=== PATIENT | female | born 1990 | race Caucasian/White ===

== ENCOUNTER → 2017-05-25 | Outpatient (CLI) | payer OTHER ==
[~2017-05-25] MED LIST: ACET-1256 PO; ALBUAER INH; BCPILLS PO; FLNIN/ NAE
[2017-05-30 01:20] LABS: CHLAMYDIA TRACH RNA*** NOT DETECTED (NOT DETECTED); GC (NEIS GONORRHOEAE)RNA** NOT DETECTED (NOT DETECTED); TRICHOMONAS VAGINALIS RNA** DETECTED (NOT DETECTED)
== END | disposition home or self-care (01) ==
LOC: C.LABSPEC 13:35
PROVIDERS: ATTEND Obstetrics & Gynecology
DX: Z11.3 Encounter for screening for infections with a predominantly sexual mode of transmission (principal)

== ENCOUNTER 2017-10-25 21:57 | Emergency (ER) | payer OTHER ==
[~2017-10-25] VITALS: Ht 154.9 cm; Wt 126.0 kg
[2017-10-25 22:08] VITALS: TEMP 37.2; Ht 154.9 cm; Wt 126.0 kg
[2017-10-25] MEDS ORDERED: IBUPROFEN 800 MG TAB PO STA (22:14)
[2017-10-25] MEDS ORDERED: NORETAB PO (22:37)
[2017-10-25] MEDS ORDERED: VNTHFA/IN INH (22:37)
--- NOTE | 2017-10-25 22:40 | DIAGNOSTIC IMAGING REPORT ---
L ANKLE MIN 3 VIEWS ROUTINE HISTORY: 27 years-old Female left medial pain/bruising acute left ankle pain status post trauma COMPARISON: None available TECHNIQUE: 3 views of the left ankle FINDINGS: There is an acute comminuted fracture of the distal fibular diaphysis which extends 3.6 cm proximal to the tibial plafond. There is 4 mm lateral and 2 mm posterior displacement with 6 degrees apex volar angulation. Moderate associated soft tissue swelling. There is questioned widening of the distal tibiofibular syndesmosis, 4 mm. The tibia and talus appear intact. IMPRESSION: Acute comminuted fracture of the distal fibular diaphysis with mild displacement and angulation as above. Mild widening of the distal tibiofibular syndesmosis is suspicious for associated syndesmotic injury. The above report was generated using voice recognition software. It may contain grammatical, syntax or spelling errors. Electronically signed by: Davy Callejas M.D. 10/25/2017 10:38 PM Dictated Date/Time: 10/25/2017 10:35 PM
[2017-10-25] MEDS ORDERED: FENTANYL CITRATE INJ 50 MCG/1 ML 2 ML VIAL IM STA (22:43)
[2017-10-25] MEDS ORDERED: ONDANSETRON INJ 2 MG/ML 2 ML VIAL IM STA (22:43)
[2017-10-25] MEDS ORDERED: OXYCODONE IR HOME PACK PO STA (22:43)
[2017-10-25] MEDS ORDERED: OXYC1TAB3 PO (23:15)
--- NOTE | 2017-10-25 23:19 | EMERGENCY ROOM VISIT NOTE ---
ED Visit Note First contact with patient: 22:02 CHIEF COMPLAINT: Left Ankle pain HISTORY OF PRESENT ILLNESS: This 27-year-old female patient presents to the emergency department via ambulance, approximately 30 minutes after sustaining an injury to the left ankle while at [facility]. The patient states she was skating through obstacles, when she caught her skate on one of the obstacles. The patient's foot got twisted and bent underneath her body, she fell on top of her foot. The patient complains of pain along the entire ankle, and is unable to identify specifically where the pain is. The patient denies pain of the foot. The patient rates the pain as throbbing and 10/10. The patient is not able to bear weight on the foot. Constant pain, worse with movement, and the dependent position. No knee pain, the patient is able to move their toes. No numbness or weakness of the foot, no laceration. The patient has not had a previous fracture to this ankle. The patient has taken nothing for the pain. The patient denies any other injury. REVIEW OF SYSTEMS: A 6 system review of systems was completed with positives and pertinent negatives listed in the HPI. ALLERGIES: Sulfa MEDICATIONS: Oral contraceptive pills PMH: Platelet aggregation disorder SOCIAL HISTORY: The patient lives locally with family. She denies drug, alcohol , tobacco use. PHYSICAL EXAM: Vital Signs: Reviewed Nurse's notes, vital signs stable. GENERAL : This is a 27-year-old obese white female, no acute distress, but appears in pain, well-developed, well-nourished. The patient is flighty, and difficult to elicit a history from. The patient is very sporadic and her story telling, and is having difficulty focusing and paying attention as I talk with her. MENTAL STATUS: Alert, oriented to person place and time, and cooperative. MUSCULOSKELETAL: The left ankle is swollen and tender throughout, worse in the distal tibia/fibula and medial malleolus, but the skin is intact and there is no ligamentous instability. There is no fifth metatarsal tenderness. There is no tenderness over the rest of the foot. There is no calf or tibia/fibular tenderness. There is no visual deformity. The foot and toes are warm and well- perfused. Dorsalis pedis pulse 2+. Sensation to pain and light touch is intact. Capillary refill less than 2 seconds. RADIOLOGY: L ANKLE MIN 3 VIEWS ROUTINE HISTORY: 27 years-old Female left medial pain/bruising acute left ankle pain status post trauma COMPARISON: None available TECHNIQUE: 3 views of the left ankle FINDINGS: There is an acute comminuted fracture of the distal fibular diaphysis which extends 3.6 cm proximal to the tibial plafond. There is 4 mm lateral and 2 mm posterior displacement with 6 degrees apex volar angulation. Moderate associated soft tissue swelling. There is questioned widening of the distal tibiofibular syndesmosis, 4 mm. The tibia and talus appear intact. IMPRESSION: Acute comminuted fracture of the distal fibular diaphysis with mild displacement and angulation as above. Mild widening of the distal tibiofibular syndesmosis is suspicious for associated syndesmotic injury. The above report was generated using voice recognition software. It may contain grammatical, syntax or spelling errors. Electronically signed by: Davy Callejas M.D. 10/25/2017 10:38 PM Dictated Date/Time: 10/25/2017 10:35 PM EMERGENCY DEPARTMENT COURSE: I examined the patient. She was initially given 800 mg Motrin by mouth. The patient is neurovascularly intact. X-rays of the left ankle were reviewed by myself and read by radiology and reveal a distal fibular fracture. The patient was given 100 g fentanyl and 4 g Zofran IM for pain prior to splinting. An Ortho-Glass stirrup splint was applied to the ankle under my direction and the position was satisfactory. Neurovascular status was rechecked and intact. The patient was instructed on the use of crutches and encouraged to avoid all weightbearing. I had a lengthy discussion with the patient and her mother at bedside regarding proper pain management. I did encourage the use of OTC pain medications primarily with OxyIR as needed for breakthrough pain. The patient and her mother verbalized understanding. The patient was discharged home in good condition. DIFFERENTIAL DIAGNOSIS: Sprain, strain, fracture, contusion, and others DIAGNOSIS: Distal fibula fracture DISCHARGE INSTRUCTIONS: Ice and elevation for 2 days, use crutches to avoid weight bearing XXXX, wear the splint XXXX. Do not get the splint wet. Ibuprofen, 600 mg and Tylenol 1000 mg every 6 hours if needed for pain. See your doctor or an orthopedic surgeon if there is no improvement in 4 - 5 days. Problem List Medical Problems: (1) Abnormal platelet aggregation Status: Chronic (2) Asthma Status: Chronic Surgical Problems: (1) History of wisdom tooth extraction Status: Chronic Current/Historical Medications Scheduled Norethindrone & Eth Estradiol (Balziva), 1 TAB PO DAILY Scheduled PRN Albuterol Hfa (Ventolin Hfa), 2 PUFF INH Q4 PRN for COUGH, SOB Oxycodone Ir (Roxicodone Ir), 1-2 TAB PO Q4H PRN for Pain Allergies Coded Allergies: Sulfa Drugs (Unverified Allergy, Mild, 01/04/15) Vital Signs Date Time Temp Pulse Resp B/P (MAP) Pulse Ox O2 Delivery O2 Flow Rate FiO2 10/25/17 23:46 90 18 131/80 98 Room Air 10/25/17 23:17 131/99 10/25/17 23:06 94 95 10/25/17 23:01 139/80 10/25/17 23:00 91 22 140/79 99 Room Air 10/25/17 22:08 37.2 75 18 125/96 99 Room Air Medications Administered Medications (Trade) Dose Ordered Sig/Nimisha Route Start Time Stop Time Status Last Admin Dose Admin Ibuprofen (Motrin Tab) 800 mg NOW STAT PO 10/25/17 22:14 10/25/17 22:15 DC 10/25/17 22:22 800 MG Fentanyl Citrate (Fentanyl Inj) 100 mcg NOW STAT IM 10/25/17 22:43 10/25/17 22:46 DC 10/25/17 23:01 100 MCG Ondansetron HCl (Zofran Inj) 4 mg NOW STAT IM 10/25/17 22:43 10/25/17 22:46 DC 10/25/17 23:01 4 MG Oxycodone HCl (Roxicodone Immediate Rel 5MG Home Pack) 1 homepack UD STAT PO 10/25/17 22:43 10/25/17 22:46 DC 10/25/17 22:58 1 HOMEPACK Departure Information Impression Primary Impression: Fracture of distal end of left fibula Dispostion Home / Self-Care Condition GOOD Prescriptions Oxycodone Ir (Roxicodone Ir) 5 Mg Tab 1-2 TAB PO Q4H Y for Pain, #15 TAB For Initial Treatment Prov: Clotilde Lancaster, PARichard 10/25/17 Referrals Christiano Orellana M.D. (PCP) Jd López M.D. Patient Instructions ED Fx Ankle General, [facility] Additional Instructions ORTHOPEDIC INSTRUCTIONS: DO NOT drive, drink alcohol, operate machinery, or perform dangerous activities today. You were given medications in the ER that can affect your ability to safely function or operate a vehicle. Oxycodone (OxyIR) 5mg: Take 1-2 pills every four hours as needed for breakthrough pain. Avoid alcohol, operating machinery or dangerous equipment, working on ladders or roofs, DRIVING, or situations where being under the influence may be dangerous. It is recommended to use an ffok-idb-mzoxhcz stool softener such as Colace, 100mg twice daily while taking this medication to avoid constipation. Ibuprofen(Motrin, Advil) may be used for fever or pain. Use 600mg every six hours as needed. Take with food. Avoid using more than 2400mg in a 24 hour period. Do not use 2400mg per day for more than three consecutive days without physician direction. Prolonged inappropriate use can lead to stomach upset or ulcers. (AND/OR) Acetaminophen(Tylenol) may be used for fever or pain. Use 1000mg every six hours as needed. Avoid using more than 3000mg in a 24 hour period. *You may alternate these medications every 3-4 hours. You should do this regularly and use OxyIR ONLY as needed for BREAKTHROUGH pain. Ice compresses for 20 minutes at a time four times daily for 2-3 days. Use the crutches as instructed. Keep ALL weight off of the foot/ankle until you are instructed otherwise by orthopedics. Rest and elevate your injury. Do not get the splint wet. If your splint feels excessively tight, you have worsening pain, develop numbness or tingling, or your digits appear blue, loosen the alireza wrap. Then reapply the alireza wrap gently without removing the splint. If your symptoms are not quickly relieved return to the ER for re- evaluation. Return to the ER immediately for any numbness, tingling, severe pain, extreme swelling in the extremity or as needed. Call [facility], [phone], tomorrow morning to arrange follow up for your injury. Follow-up with your primary care physician in 2 to 3 days for a recheck of your current condition. Problem Qualifiers Primary Impression: Fracture of distal end of left fibula Encounter type: initial encounter Fracture type: closed Fracture morphology : other fracture Qualified Codes: S82.832A - Other fracture of upper and lower end of left fibula, initial encounter for closed fracture
[2017-10-25 23:46] VITALS: BP 131/80; PULSE 90; O2SAT 98
[2017-10-26] MEDS ORDERED: OXYC1TAB3 PO ×2 (11:19→16:12)
--- NOTE | 2017-10-26 11:26 | Pharmacy Progress Note ---
ED Pharmacist Progress Note Date of Service: Oct 26, 2017. Pharmacist from [facility] ([phone]) called stating the Rx for Oxy IR is being rejected by the patient's insurance company because the daily prescribed quantity exceeds the max set by her insurance. Her insurance limits daily opiate use to 90mg morphine equivalent max. The current Rx directions permit up to 12 tablets of oxy ir 5mg per day which is 112mg morphine equivalents per insurance calculation. Reviewed case with Dr Munoz. He sent a new Rx to [facility] electronically for 1 tab oxy ir 5mg Q 6 hrs prn pain. I spoke with the pharmacist (wilfrido) at [facility] to get the prior oxy ir Rx cancelled. She also confirmed she received the new Rx there.
[2017-10-27] MEDS ORDERED: ONDA4TAB65 PO (18:07)
[2017-10-27] MEDS ORDERED: OXYC1TAB3 PO (18:07)
== END 2017-10-25 23:52 | disposition home or self-care (01) ==
LOC: EDBD 21:57 → C.EDB 22:00
DX: S82.832A Other fracture of upper and lower end of left fibula, initial encounter for closed fracture (principal); V00.111A Fall from in-line roller-skates, initial encounter; Y93.51 Activity, roller skating (inline) and skateboarding; Z79.3 Long term (current) use of hormonal contraceptives; J45.909 Unspecified asthma, uncomplicated

== ENCOUNTER → 2017-10-26 | Outpatient (CLI) | payer OTHER ==
[~2017-10-26] MED LIST changes: -ACET-1256 PO; -ALBUAER INH; -BCPILLS PO; -FLNIN/ NAE; +NORETAB PO; +ONDA4TAB65 PO; +OXYC1TAB3 PO; +VNTHFA/IN INH
[2017-10-26 17:00] LABS: BASO % 0.1 %; BASO ABS # 0.01 K/uL (0-0.2); COMPLETE YES; EOS % 0.4 %; HEMATOCRIT 38.2 % (37-47); IG% 0.4 %; LYMPH % 23.5 %; LYMPH ABS # 2.01 K/uL (1.2-3.4); MEAN CELL VOLUME 84.9 fL (80-100); MEAN CORPUSCULAR HEMOGLOBIN 27.6 pg (25-34); MEAN CORPUSCULAR HGB CONC 32.5 g/dl (32-36); MEAN PLATELET VOLUME 10.9 fL (7.4-10.4); NEUT % 69.6 %; PLATELET COUNT 291 K/uL (130-400); WHITE BLOOD COUNT 8.57 K/uL (4.8-10.8)
== END | disposition home or self-care (01) ==
LOC: C.LABBC 12:43
PROVIDERS: ATTEND Orthopaedic Surgery Sports Medicine
DX: Z01.812 Encounter for preprocedural laboratory examination (principal)

== ENCOUNTER 2017-10-27 11:52 | Day surgery (SDC) | payer OTHER ==
[2017-10-26 16:08] VITALS: BMI 49.0
--- NOTE | 2017-10-26 17:26 | HISTORY & PHYSICAL EXAMINATION ---
DATE OF ADMISSION: 10/27/2017 CHIEF COMPLAINT: Left ankle injury. 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 She was apparently at [facility] when she was doing some type of obstacle course and injured her left ankle. Few onset of pain and could not walk afterwards. We brought her to the emergency room, where x-rays revealed the ankle fracture. She was splinted and referred to our clinic for treatment. No preexisting ankle problems. She does have an underlying platelet dysfunction disorder, followed by Dr. Suarez. She describes isolated ankle pain. PAST MEDICAL HISTORY: 1. Obesity. 2. Asthma. 3. Unspecified platelet disorder. PAST SURGICAL HISTORY: Include: 1. Left hand surgery. 2. Tonsillectomy. 3. [place] teeth surgery. ALLERGIES: SULFA. CURRENT MEDICATIONS: Include oral contraceptives medicine. SOCIAL HISTORY: A 27-year-old female. 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 Does not smoke. FAMILY HISTORY: Negative for diabetes, heart disease, or blood clots. REVIEW OF SYSTEMS: Significant for this platelet dysfunction disorder. Denies any current chest pain, shortness of breath. No head injury. She says she bruises easily, but not excessively. PHYSICAL EXAMINATION: GENERAL: Healthy, pleasant, 27-year-old female. HEENT: Exam is benign. NECK: Supple. No lymphadenopathy. LUNGS: Clear to auscultation. HEART: Regular rate and rhythm. ABDOMEN: Soft, nontender, nondistended. EXTREMITIES: Grossly neurovascularly intact except as follows: Examination of the left ankle reveals just a slight bit of swelling and deformity. There is no major amount of bruising. No fracture blisters. She is tender both medially and laterally. She can dorsiflex and plantarflex her toes appropriately. No knee effusion. X-RAYS: X-rays of the left ankle from the ER reviewed. It shows a Trivedi C ankle fracture with some slight comminution with disruption of the ankle mortise. 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 This is certainly best treated surgically. PLAN: We talked about treatment options. We are going to take her to the operating room to do an open reduction and internal fixation of left ankle fracture. We will fix the fibula. I think it is highly likely we will have to put a syndesmosis screw between the fibula and the tibia. The risks and benefits of this procedure were explained to the patient, including, but not limited to DVT, PE, , infection, neurological injury, vascular injury, bleeding problem, pain, limited range of motion, stiffness, failure to relieve her symptoms, incomplete relief of symptoms, need for further surgery in the future, nonunion, malunion, arthritis, need for hardware removal, etc. The patient understands and desires to proceed. Informed consent was obtained. We had been in contact with Dr. Suarez's office. He had recommended to her transfusion an hour before surgery and then each day 3 days after and we will try and set this up. She should be able to be discharged to home postoperatively. I will see her back in 2 weeks in clinic.
[~2017-10-27] VITALS: Ht 154.9 cm; Wt 118.2 kg
[2017-10-27] MEDS: HYDROmorphone INJ 2 MG/ML SYR/VIAL IV PRN ×6 (08:25→18:50)
[~2017-10-27 11:52] MED LIST changes: +CEFAZOLIN 2000MG IV PUSH 10 ML IV SCH; +LACTATED RINGER'S 1000ML 1,000 ML IV SCH; +LACTATED RINGER'S 1000ML IV SCH; -ONDA4TAB65 PO
[2017-10-27 12:27] VITALS: BP 119/78; PULSE 81; TEMP 36.8; O2SAT 95; Ht 154.9 cm; Wt 118.2 kg
[2017-10-27 13:04] LABS: PREG INTERNAL NEGATIVE QC NEG CLEAR BACKGROUND; PREG INTERNAL POSITIVE QC POS CONTROL LINE
[2017-10-27 13:05] LABS: BUN/CREATININE RATIO 14.1 (10-20); CREATININE 0.69 mg/dl (0.60-1.20); POTASSIUM 4.4 mmol/L (3.5-5.1)
--- NOTE | 2017-10-27 13:19 | History & Physical Bridge Note ---
H&P Re-Evaluation Bridge Note: I have examined the patient, reviewed the History & Physical and in the interval since the performance of the History & Physical I have noted the following changes of clinical significance: No changes noted
[2017-10-27 13:21] VITALS: BP 110/67; PULSE 80; TEMP 37.2; O2SAT 96
[2017-10-27 13:34] VITALS: BP 110/67; PULSE 68; TEMP 37; O2SAT 99
[2017-10-27] MEDS ORDERED: BACITRACIN 50000 UNIT VIAL ONE (15:20)
[2017-10-27] MEDS ORDERED: BUPIVACAINE/EPINEPHRINE 0.5% MPF 1:200,000 30 ML VIAL ONE (15:20)
[2017-10-27] MEDS ORDERED: ONDANSETRON INJ 2 MG/ML 2 ML VIAL IV PRN (15:30)
[2017-10-27] MEDS ORDERED: ATROPINE SULFATE 0.1 MG/ML 5ML SYR IV PRN (15:30)
[2017-10-27] MEDS ORDERED: PHENYLEPHRINE 100MCG/ML 5ML SYR IV PRN (15:30)
[2017-10-27] MEDS ORDERED: EpHEDrine SULFATE INJ 50 MG/ML AMP IV PRN (15:30)
[2017-10-27] MEDS ORDERED: FENTANYL CITRATE INJ 50 MCG/1 ML 2 ML VIAL ONE ×3 (15:55→16:35)
[2017-10-27] MEDS ORDERED: LIDOCAINE HCL 2% 2 ML VIAL (20MG/ML) ONE (16:42)
[2017-10-27] MEDS ORDERED: GLYCOPYRROLATE INJ 0.2 MG/ML VIAL ONE (16:42)
[2017-10-27] MEDS ORDERED: ONDANSETRON INJ 2 MG/ML 2 ML VIAL ONE (16:42)
[2017-10-27] MEDS ORDERED: DEXAMETHASONE SOD INJ 4 MG/ML VIAL ONE (16:42)
[2017-10-27] MEDS ORDERED: PROPOFOL IV EMULSION 10 MG/ML 20 ML VIAL IV ONE (16:42)
[2017-10-27] MEDS ORDERED: NEOSTIGMINE METHYLSULFATE 5 MG/5 ML SYR ONE (16:42)
[2017-10-27] MEDS ORDERED: ROCURONIUM BROMIDE 10 MG/ML 5 ML VIAL IV ONE (16:42)
--- NOTE | 2017-10-27 17:38 | DIAGNOSTIC IMAGING REPORT ---
L ANKLE MIN 3 VIEWS ROUTINE CLINICAL HISTORY: Left ankle postop. COMPARISON STUDY: Left ankle 10/25/2017. FINDINGS: 5 fluoroscopic spot images of the left ankle. Total fluoroscopy time was 41 seconds. Lateral cortical plate transfixed with screws bridging the distal fibular fracture. There is also a single syndesmotic screw. The hardware appears intact. The alignment is near-anatomic. IMPRESSION: Fluoroscopy provided for internal fixation of a left ankle fracture. Electronically signed by: Solomon Alonso M.D. 10/27/2017 5:37 PM Dictated Date/Time: 10/27/2017 5:35 PM
--- NOTE | 2017-10-27 18:05 | [facility] Post Operative Brief Note ---
Immediate Operative Summary Operative Date Oct 27, 2017. Pre-Operative Diagnosis Left ankle fracture - Trivedi C Post-Operative Diagnosis Left ankle fracture - Trivedi C Procedure(s) Performed Left Ankle Fracture Open Reduction Internal Fixation Surgeon Dr. Jd López Safety Belt Installer Surgeon(s) Liborio FUCHS Estimated Blood Loss 20cc Findings Trivedi C Ankle Fracture with syndesmosis disruption Fluids (cc crystalloids) 1000 cc Specimens none per surgeon Drains None Anesthesia General Complication(s) None Disposition Recovery Room / PACU
[2017-10-27] MEDS ORDERED: SODIUM CHLORIDE 0.9% 1000ML 1,000 ML IV SCH (18:07)
[2017-10-27] MEDS ORDERED: OXYC1TAB3 PO (18:07)
[2017-10-27] MEDS ORDERED: ONDA4TAB65 PO (18:07)
--- NOTE | 2017-10-27 18:09 | Discharge Instructions ---
Discharge Instructions Date of Service Oct 27, 2017. Visit Reason for Visit: Left Ankle Fracture Discharge Discharge Diagnosis / Problem: Ankle Fracture ORIF Discharge Goals Goal(s): Decrease discomfort, Improve function, Increase independence, Improve disease control, Therapeutic intervention Activity Recommendations Activity Limitations: per Instructions/Follow-up section Weightbearing Status: Left non-weightbearing Anesthesia . Post Anesthesia Instructions: If you have had General Anesthesia or IV Sedation: * Do not drive today. * Resume driving when surgeon permits. * Do not make important decisions or sign legal documents today. * Call surgeon for: 1. Temperature elevations greater than 101 degrees F. 2. Uncontrollable pain. 3. Excessive bleeding. 4. Persistent nausea and vomiting. 5. Medication intolerance (nausea, vomiting or rash). * For nausea and vomiting use only clear liquids such as: tea, soda, bouillon until nausea subsides, then gradually increase diet as tolerated. * If you have any concerns or questions, call your surgeon's office. If physician is unavailable and it is an emergency, call 911 or go to the nearest emergency room. . Instructions / Follow-Up Instructions / Follow-Up No Weight left leg Keep splint clean and dry and in place Return to clinic follow-up in 2 weeks. Diet Recommendations Recommended Home Diet: resume previous diet Procedures Procedures Performed: Left Ankle Fracture Open Reduction Internal Fixation Pending Studies Studies pending at discharge: no Medical Emergencies . Who to Call and When: Medical Emergencies: If at any time you feel your situation is an emergency, please call 911 immediately. . Non-Emergent Contact Non-Emergency issues call your: Surgeon . . "Provider Documentation" section prepared by Jd López. .
--- NOTE | 2017-10-27 18:13 | Discharge Instructions ---
Discharge Instructions Date of Service Oct 27, 2017. Admission Reason for Admission: Left Ankle Fracture Discharge Discharge Diagnosis / Problem: left ankle fracture Discharge Goals Goal(s): Improve function, Therapeutic intervention Activity Recommendations Activity Limitations: per Instructions/Follow-up section Weightbearing Status: Left non-weightbearing . Instructions / Follow-Up Instructions / Follow-Up MEDICATIONS: * Resume previous medications unless instructed otherwise by your surgeon. * Always take pain medication on a full stomach or with food to avoid upset stomach. * Do not drink alcohol or drive while taking narcotics. * Ibuprofen or Tylenol may be taken if narcotic not needed. SPECIAL CARE INSTRUCTIONS: __ None _x_ Keep extremity elevated and iced x 48 hours; apply ice 20-30 minutes 8-10 times/day. May remove at night. _x_ Crutches or Roll-about device __ May discard when able __ Brace/Post-op shoe __ 24 hrs/day __ Remove at night _x_ Dressing _x_ Maintain until seen in office, may shower with plastic over site __ Remove dressings in 24-48 hours and then may shower __ Cover incisions with band-aids after showering __ Do not remove steri-strips Call physician if chills or temperature rises above 102 degrees or pain unrelieved by prescribed pain medications. Office [phone] follow up in 2 weeks Current Hospital Diet Patient's current hospital diet: Discharge Diet Recommended Diet: Regular Diet Procedures Procedures Performed: Left Ankle Fracture Open Reduction Internal Fixation Pending Studies Studies pending at discharge: no Medical Emergencies . Who to Call and When: Medical Emergencies: If at any time you feel your situation is an emergency, please call 911 immediately. . Non-Emergent Contact Non-Emergency issues call your: Surgeon . "Provider Documentation" section prepared by Jose Salas. . VTE Core Measure Inpt VTE Proph given/why not?: Treatment not indicated
[2017-10-27] MEDS ORDERED: OXYCODONE/ACETAMINOPHEN 5-325 TAB PO PRN ×2 (18:15)
[2017-10-27] MEDS ORDERED: HYDROmorphone INJ 1 MG/ML SYR ONE (18:23)
--- NOTE | 2017-10-27 19:17 | Anesthesiology Progress Note ---
Anesthesia Post Op Note Date & Time Oct 27, 2017 at 19:17 Vital Signs Vital Signs Past 12 Hours Date Time Temp Pulse Resp B/P (MAP) Pulse Ox O2 Delivery O2 Flow Rate FiO2 10/27/17 19:07 88 19 10/27/17 19:07 87 19 97 10/27/17 19:06 137/70 10/27/17 19:02 82 17 95 10/27/17 19:02 83 17 10/27/17 19:01 138/76 10/27/17 18:57 86 19 10/27/17 18:57 86 19 95 10/27/17 18:56 134/80 10/27/17 18:52 87 19 93 10/27/17 18:52 87 19 10/27/17 18:51 136/83 10/27/17 18:47 92 15 95 10/27/17 18:47 92 15 10/27/17 18:46 120/96 10/27/17 18:42 105 14 10/27/17 18:42 104 14 94 10/27/17 18:41 151/88 10/27/17 18:37 104 27 10/27/17 18:37 106 27 94 10/27/17 18:36 141/88 10/27/17 18:35 95 24 10/27/17 18:35 94 24 100 10/27/17 18:31 136/95 10/27/17 18:30 95 30 10/27/17 18:30 96 30 100 10/27/17 18:26 148/99 10/27/17 18:25 109 32 97 10/27/17 18:25 109 32 10/27/17 18:21 158/89 10/27/17 18:20 105 26 98 10/27/17 18:20 106 26 10/27/17 18:18 147/92 10/27/17 18:05 36.9 110 22 147/92 (119) 97 Oxymask 10 10/27/17 13:34 37.0 68 16 110/67 99 10/27/17 13:21 37.2 80 18 110/67 96 10/27/17 12:27 36.8 81 20 119/78 (92) 95 Room Air Notes Mental Status: alert / awake / arousable, participated in evaluation Pt Amnestic to Procedure: Yes Nausea / Vomiting: adequately controlled Pain: adequately controlled Airway Patency, RR, SpO2: stable & adequate BP & HR: stable & adequate Hydration State: stable & adequate Anesthetic Complications: no major complications apparent
[2017-10-27 19:25] VITALS: BP 124/71; PULSE 89; TEMP 36.8; O2SAT 94
[2017-10-27] MEDS ORDERED: CEFAZOLIN IV 1,000 MG in SYRINGE 0 ML IV ONE (19:30)
[2017-10-27 19:54] VITALS: BP 126/80; PULSE 98; TEMP 36.5; O2SAT 92
[2017-10-27 20:19] VITALS: BP 122/83; PULSE 91; TEMP 36; O2SAT 91
--- NOTE | 2017-10-28 01:11 | OPERATIVE REPORT ---
DATE OF OPERATION: 10/27/2017 SURGEON: Jd López MD. SENIOR RECRUITMENT CONSULTANT: JEF Casey. PREOPERATIVE DIAGNOSIS: Left displaced comminuted Trivedi C ankle fracture with syndesmosis disruption. POSTOPERATIVE DIAGNOSIS: Same. PROCEDURE PERFORMED: Open reduction internal fixation of left unstable Trivedi C ankle fracture with syndesmosis screw fixation. COMPLICATION: None. ESTIMATED BLOOD LOSS: 20 mL FLUID REPLACEMENT: 1000 mL crystalloid fluid replacement. ANESTHESIA: General. SPECIMENS: None. TOURNIQUET TIME: 60 minutes at 350 mmHg. OPERATIVE INDICATIONS: The patient is a 27-year-old obese female who injured her ankle 2 days ago. She was practicing [employer] when she injured her ankle. She had acute onset of pain and was seen in the Emergency Room. X-rays revealed an unstable Trivedi C ankle fracture with comminution and disruption of the mortise. The patient indicated for surgical treatment. 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 She also reported NICKEL ALLERGY, so titanium plate and screw system were used. OPERATIVE IMPLANTS: Operative implants consisted of: 1. A Synthes titanium 10-hole 1/3 semitubular plate. 2. A Synthes titanium 4-hole 1/3 semitubular plate. 3. 4.0 fully threaded cancellous screws x2. 4. 3.5 fully threaded cortical titanium screws x 6. 5. 4.5 fully threaded titanium cortical screw x1. OPERATIVE PROCEDURE: The patient was taken to the operating room, identified and placed on the operating table in supine position. All contact areas were appropriately padded. IV antibiotics were provided by anesthesia team. A general anesthetic was implemented. Of note, the patient did receive platelets preoperatively as directed by Dr. Suarez, the corporate event planner. A left thigh tourniquet was then placed and left lower extremity was then scrubbed with Hibiclens and then prepped with ChloraPrep and draped in usual sterile fashion. A direct lateral approach to the fibula was then performed through a longitudinal incision over the fibula. Sharp dissection was carried out through the subcutaneous tissues down to the level of fascia. The fascia was incised longitudinally. A fairly large branch of superficial peroneal nerve was identified and protected and retracted anteriorly throughout the case. The fracture was identified. We exposed the fracture site. It was fairly comminuted and I could not really piece anything back together to create a stable fragment, so I left the pieces as they were. I spent some time getting the length back out to the fibula and then held it with a reduction clamp. I then placed a single guidewire across the fracture site to stabilize it temporarily. A 10-hole 1/3 semitubular plate was then contoured on the lateral aspect of the fibula and fixed proximally with a single 3.5 cortical screw. I then placed the 4-hole plate over the 10-hole plate to maximize the strength of this plate at the fracture site as it was comminuted and the fact that we were using titanium plates. I then fixed the plate proximally with 3 additional 3.5 cortical screws and distally with a two 3.5 cortical screws and two 4.0 fully threaded cancellous screws. X-ray was brought in. I then stressed the ankle and the mortise did widen somewhat. Therefore, I placed a 4.5 fully threaded cortical screw to the syndesmosis and through the plate. This held the ankle in reduced position in dorsiflexion and then a reduction clamp was placed. I made a stab incision medially and reduced the mortise and then placed the 4.5 cortical screw through all 4 cortices. X-ray was brought in. I examined the ankle again and the ankle mortise was perfectly maintained. All hardware was appropriately positioned. Attention was then drawn toward closing. All wound areas were irrigated with copious amounts of normal saline. I did inject locally with 30 mL of 0.5% Marcaine with epinephrine. The fascia over the plate was then closed with 0 Vicryl suture in a [id number] fashion. The tourniquet was then let down for a tourniquet time of 60 minutes. Hemostasis was assured using electrocautery. I irrigated both wounds. The subcutaneous tissues of lateral wound were then closed with 2-0 Vicryl suture in a buried interrupted fashion. The skin of both the medial and lateral wounds was then closed with 3-0 nylon suture in a simple fashion. The leg was then cleaned and dried, and a sterile dressing of Xeroform, 4 x 4's, sterile cast padding and a well-padded posterior and stirrup splint were applied. The patient was then brought out of general anesthesia and transferred to the recovery room in stable condition. The patient tolerated the procedure well with no complications. All needle and sponge counts were correct at the end of the operation. I attest to the content of the Intraoperative Record and any orders documented therein. Any exceptions are noted below. WILLIAND
== END 2017-10-28 12:11 | disposition home or self-care (01) ==
LOC: C.ACU 11:52
PROVIDERS: ATTEND Orthopaedic Surgery Sports Medicine
DX: S82.63XA Displaced fracture of lateral malleolus of unspecified fibula, initial encounter for closed fracture (principal); M24.873 Other specific joint derangements of unspecified ankle, not elsewhere classified; X58.XXXA Exposure to other specified factors, initial encounter; Y93.51 Activity, roller skating (inline) and skateboarding; J45.909 Unspecified asthma, uncomplicated; Z88.2 Allergy status to sulfonamides; E66.01 Morbid (severe) obesity due to excess calories; Z98.890 Other specified postprocedural states; Z90.89 Acquired absence of other organs; Z98.818 Other dental procedure status; Z68.42 Body mass index [BMI] 45.0-49.9, adult

== ENCOUNTER 2018-02-28 12:39 | Day surgery (SDC) | payer OTHER ==
[2018-02-19 09:49] VITALS: BMI 51.0
[2018-02-23 09:45] VITALS: BMI 53.0
--- NOTE | 2018-02-23 10:04 | PAT Medication Instructions ---
Service Date Feb 23, 2018. Current Home Medication List Albuterol Hfa (Ventolin Hfa), 2 PUFF INH Q4 PRN for COUGH, SOB Cetirizine (Zyrtec), 10 MG PO HS Desmopressin Acetate (Stimate), 1 SPRAY RIMMA UD Fluticasone Propionate (Nasal) (Flonase Allergy Relief), 2 SPRAYS NA QAM Norethindrone & Eth Estradiol (Balziva), 1 TAB PO QAM Oxycodone Ir (Roxicodone Ir), 1-2 TAB PO Q6H PRN for Severe Pain Medication Instructions For Your Scheduled Surgery - Take the following medications the morning of surgery with a sip of water: Albuterol Hfa (Ventolin Hfa), 2 PUFF INH Q4 PRN for COUGH, SOB (if needed, and bring it with you to the hospital) Desmopressin Acetate (Stimate), 1 SPRAY RIMMA UD (if needed) Fluticasone Propionate (Nasal) (Flonase Allergy Relief), 2 SPRAYS NA QAM Norethindrone & Eth Estradiol (Balziva), 1 TAB PO QAM Oxycodone Ir (Roxicodone Ir), 1-2 TAB PO Q6H PRN for Severe Pain (if needed, can be taken up to four hours before surgery) - Take the following medications as scheduled the night before surgery: Albuterol Hfa (Ventolin Hfa), 2 PUFF INH Q4 PRN for COUGH, SOB (if needed) Cetirizine (Zyrtec), 10 MG PO HS Desmopressin Acetate (Stimate), 1 SPRAY RIMMA UD (if needed) Oxycodone Ir (Roxicodone Ir), 1-2 TAB PO Q6H PRN for Severe Pain (if needed) If you have any questions please call us at [phone] or [phone] or [phone]
[2018-02-23 10:48] LABS: BASO % 0.2 %; BASO ABS # 0.02 K/uL (0-0.2); EOS ABS # 0.09 K/uL (0-0.5); HEMATOCRIT 38.5 % (37-47); HEMOGLOBIN 12.8 g/dL (12.0-16.0); IG# 0.03 K/uL (0.00-0.02); LYMPH % 19.3 %; LYMPH ABS # 1.83 K/uL (1.2-3.4); MEAN CELL VOLUME 83.9 fL (80-100); MEAN CORPUSCULAR HEMOGLOBIN 27.9 pg (25-34); MEAN CORPUSCULAR HGB CONC 33.2 g/dl (32-36); MEAN PLATELET VOLUME 9.5 fL (7.4-10.4); MONO % 5.3 %; NEUT % 73.9 %; NEUT ABS # 6.99 K/uL (1.4-6.5); PLATELET COUNT 318 K/uL (130-400); RED CELL DISTRIBUTION WIDTH CV 14.6 % (11.5-14.5); RED CELL DISTRIBUTION WIDTH SD 44.9 fL (36.4-46.3); WHITE BLOOD COUNT 9.46 K/uL (4.8-10.8)
[2018-02-23 10:57] LABS: INR 0.9 (0.9-1.1); PTT PATIENT 28.4 SECONDS (21.0-31.0)
[2018-02-23 11:00] LABS: CALCIUM 9.1 mg/dl (8.5-10.1); CREATININE 0.64 mg/dl (0.60-1.20); POTASSIUM 3.9 mmol/L (3.5-5.1)
--- NOTE | 2018-02-27 15:49 | HISTORY & PHYSICAL EXAMINATION ---
DATE OF ADMISSION: 02/28/2018 CHIEF COMPLAINT: Retained hardware, left ankle, status post ORIF with syndesmosis screw fixation. 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 She underwent open reduction internal fixation on 10/27/2017 with syndesmosis screw fixation. She has done well from that since that time. She has recovered and her fracture and syndesmosis appears healed and she is indicated for syndesmosis screw removal. 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 She required platelets at her previous surgery, but I do not believe she should need that for this surgery. No other complaints. PAST MEDICAL HISTORY: Significant for; 1. Obesity. 2. Asthma. 3. Platelet disorder. PAST SURGICAL HISTORY: Include: 1. Left hand surgery. 2. Tonsillectomy. 3. Pyrites tooth surgery. 4. ORIF of left ankle fracture done on 10/27/2017. ALLERGIES: SULFA. CURRENT MEDICATIONS: Include oral contraceptive medicine. SOCIAL HISTORY: A 27-year-old female. 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 Does not smoke. FAMILY HISTORY: Negative for diabetes, heart disease, or blood clots. REVIEW OF SYSTEMS: Significant for this platelet disorder. She has had surgeries without platelets in the past. Denies any chest pain or shortness of breath. No history of DVT or PE. PHYSICAL EXAMINATION: GENERAL: Shows a healthy pleasant 27-year-old female. HEENT: Benign. NECK: Supple. No lymphadenopathy. LUNGS: Clear to auscultation. HEART: Regular rate and rhythm. ABDOMEN: Soft, nontender, nondistended. EXTREMITIES: Grossly neurovascularly intact except as follows: Examination of the left ankle reveals the incisions to be healed nicely. She can walk quite well with minimal to no limp. She can dorsiflex and plantarflex her foot appropriately. She is neurologically intact. X-RAYS: X-ray of the left ankle reviewed. She has the ankle fracture fixed with a lateral plate and screws. She has got syndesmosis screw fixation and a little lucency around the syndesmosis screw. The fibular fracture looks healed. ASSESSMENT: A 27-year-old female with an underlying platelet abnormality now 4 months out from ORIF of left Trivdei C ankle fracture with a clinically healed fracture and requiring syndesmosis screw removal. PLAN: We are going to take her to the operating room and do a syndesmosis screw removal. We can probably do this even local with sedation. I do not think she will need a platelet as this will not be much more than a small 1 cm incision. We will use Marcaine with epinephrine for pain control and also to limit bleeding. The risks and benefits of this procedure were explained to the patient include but not limited to DVT, PE, , infection, neurological injury, vascular injury, bleeding problem, pain, limited range of motion, stiffness, persistent bleeding, need for further surgery in future, etc. The patient understands and desires to proceed. Informed consent was obtained. She should be able to be discharged to home. They are requiring us to do this at the main operating room due to her BMI.
[~2018-02-28] VITALS: Ht 154.9 cm; Wt 127.9 kg
[~2018-02-28 12:39] MED LIST changes: -CEFAZOLIN 2000MG IV PUSH 10 ML IV SCH; +CETI10TA84 PO; +FLUT0.15; -LACTATED RINGER'S 1000ML IV SCH; +ROPIVACAINE 0.5% 5 MG/ML 30 ML VIAL ONE; +[UNRECOGNIZED DRUG - CODE] NAE
[2018-02-28 13:20] VITALS: BP 142/68; PULSE 95; TEMP 37.2; O2SAT 98; Ht 154.9 cm; Wt 127.9 kg
[2018-02-28] MEDS ORDERED: MIDAZOLAM HCL 1 MG/ML 2ML VIAL ONE (13:28)
[2018-02-28] MEDS ORDERED: PROPOFOL IV EMULSION 10 MG/ML 20 ML VIAL IV ONE ×3 (13:28→16:06)
[2018-02-28] MEDS ORDERED: LIDOCAINE HCL 2% 2 ML VIAL (20MG/ML) ONE (13:28)
[2018-02-28] MEDS ORDERED: FENTANYL CITRATE INJ 50 MCG/1 ML 2 ML VIAL ONE (13:28)
[2018-02-28] MEDS ORDERED: KETOROLAC TROMETHAMINE 30 MG/ML VIAL ONE (13:28)
[2018-02-28] MEDS ORDERED: DEXAMETHASONE SOD INJ 4 MG/ML VIAL ONE (13:28)
[2018-02-28] MEDS ORDERED: ONDANSETRON INJ 2 MG/ML 2 ML VIAL ONE (13:28)
[2018-02-28] MEDS ORDERED: CEFAZOLIN 2000MG IV PUSH 15 ML IV SCH (14:30)
[2018-02-28] MEDS ORDERED: FENTANYL CITRATE INJ 50 MCG/1 ML 2 ML VIAL IV PRN (14:45)
[2018-02-28] MEDS ORDERED: EpHEDrine SULFATE INJ 50 MG/ML AMP IV PRN (14:45)
[2018-02-28] MEDS ORDERED: ONDANSETRON INJ 2 MG/ML 2 ML VIAL IV PRN (14:45)
[2018-02-28] MEDS ORDERED: ATROPINE SULFATE 0.1 MG/ML 5ML SYR IV PRN (14:45)
[2018-02-28] MEDS ORDERED: BUPIVACAINE/EPINEPHRINE 0.5% MPF 1:200,000 30 ML VIAL ONE (15:12)
[2018-02-28] MEDS ORDERED: LIDOCAINE HCL 1% 20 ML VIAL ONE (15:13)
--- NOTE | 2018-02-28 16:11 | [facility] Post Operative Brief Note ---
Immediate Operative Summary Operative Date Feb 28, 2018. Pre-Operative Diagnosis Retained hardware, left ankle, s/p ORIF syndesmosis screw fixation Post-Operative Diagnosis Same as preop Procedure(s) Performed Left Ankle Syndemosis Screw Removal Surgeon Dr. López Field Sales Representative Surgeon(s) Carrie Salas PA-C Estimated Blood Loss minimal Findings Consistent with Post-Op Diagnosis Specimens A: explanted left ankle hardware Drains None Anesthesia Type MAC Complication(s) none Disposition Accompanied Pt To Recover: no Disposition: Recovery Room / PACU
[2018-02-28] MEDS ORDERED: SODIUM CHLORIDE 0.9% 1000ML 1,000 ML IV SCH (16:16)
--- NOTE | 2018-02-28 16:20 | Discharge Instructions ---
Discharge Instructions Date of Service Feb 28, 2018. Admission Reason for Admission: Left Ankle Fracture S/P Orif, Retained Hardware Discharge Discharge Diagnosis / Problem: s/p ORIF left ankle fx, retained hardware Discharge Goals Goal(s): Therapeutic intervention Activity Recommendations Activity Limitations: per Instructions/Follow-up section Weightbearing Status: Left weightbearing (as tolerated with walking boot ) . Instructions / Follow-Up Instructions / Follow-Up MEDICATIONS: * Resume previous medications unless instructed otherwise by your surgeon. * Always take pain medication on a full stomach or with food to avoid upset stomach. * Do not drink alcohol or drive while taking narcotics. * Tylenol may be taken if narcotic not needed. SPECIAL CARE INSTRUCTIONS: __ None __ Keep extremity elevated and iced x 48 hours; apply ice 20-30 minutes 8-10 times/day. May remove at night. __ Crutches __ May discard when able __ Brace/Post-op shoe __ 24 hrs/day __ Remove at night _x_ Dressing __ Maintain until seen in office, may shower with plastic over site _x_ Remove dressings in 24-48 hours and then may shower _x_ Cover incisions with band-aids after showering __ Do not remove steri-strips Call physician if chills or temperature rises above 102 degrees or pain unrelieved by prescribed pain medications. Office [phone] follow up in 2 weeks Current Hospital Diet Patient's current hospital diet: Discharge Diet Recommended Diet: Regular Diet Procedures Procedures Performed: Left Ankle Syndemosis Screw Removal Pending Studies Studies pending at discharge: no Medical Emergencies . Who to Call and When: Medical Emergencies: If at any time you feel your situation is an emergency, please call 911 immediately. . Non-Emergent Contact Non-Emergency issues call your: Surgeon . "Provider Documentation" section prepared by Jose Salas. .
[2018-02-28] MEDS ORDERED: OXYCODONE/ACETAMINOPHEN 5-325 TAB PO PRN ×2 (16:30)
--- NOTE | 2018-02-28 16:33 | Anesthesiology Progress Note ---
Anesthesia Post Op Note Date & Time Feb 28, 2018 at 16:33 Vital Signs Pain Intensity: 0 Vital Signs Past 12 Hours Date Time Temp Pulse Resp B/P (MAP) Pulse Ox O2 Delivery O2 Flow Rate FiO2 02/28/18 13:20 37.2 95 16 142/68 (92) 98 Room Air Notes Mental Status: alert / awake / arousable, participated in evaluation Pt Amnestic to Procedure: Yes Nausea / Vomiting: adequately controlled Pain: adequately controlled Airway Patency, RR, SpO2: stable & adequate BP & HR: stable & adequate Hydration State: stable & adequate Anesthetic Complications: no major complications apparent
--- NOTE | 2018-02-28 16:35 | DIAGNOSTIC IMAGING REPORT ---
INTRAOPERATIVE LEFT ANKLE 2 VIEWS CLINICAL HISTORY: SCREW REMOVAL LT ANKLE COMPARISON STUDY: Outside study dated 02/09/2018 FINDINGS: 2 intraoperative fluoroscopic spot images are provided for interpretation. 4 seconds of fluoroscopic time was utilized. There is been interval removal of the transversely oriented distal syndesmotic screw. The lateral fibular metallic plate and multiple screws remain in position. There is a small bony fragment located inferior to the medial malleolar tip. IMPRESSION: Intraoperative fluoroscopic spot images demonstrating interval removal of the transversely oriented syndesmotic screw. Electronically signed by: Clovis Tim M.D. 02/28/2018 4:34 PM Dictated Date/Time: 02/28/2018 4:32 PM
[2018-02-28 16:50] VITALS: BP 110/75; PULSE 84; TEMP 36.8; O2SAT 96
[2018-02-28 17:20] VITALS: BP 129/71; PULSE 69; TEMP 36.8; O2SAT 97
--- NOTE | 2018-02-28 17:25 | OPERATIVE REPORT ---
DATE OF OPERATION: 02/28/2018 SURGEON: Dr. Jd López. REVENUE CYCLE ADMINISTRATOR: JEF Casey PREOPERATIVE DIAGNOSIS: Retained hardware, status post open reduction internal fixation of left ankle fracture with syndesmosis screw fixation. POSTOPERATIVE DIAGNOSIS: Retained hardware, status post open reduction internal fixation of left ankle fracture with syndesmosis screw fixation. PROCEDURE PERFORMED: Left ankle deep hardware removal/syndesmosis screw removal. COMPLICATIONS: None. ESTIMATED BLOOD LOSS: Minimal. TOURNIQUET TIME: Not applicable. OPERATIVE INDICATIONS: Patient is a 27-year-old female now 4 months out from ORIF of a left unstable Trivedi C ankle fracture with syndesmosis screw fixation. She has done well. She has healed her fracture and indicated for syndesmosis screw removal. There was clearly some lucency around the screw tract. OPERATIVE PROCEDURE: Patient taken to the operating room, identified and placed on the operating table in supine position. All contact areas were appropriately padded. IV antibiotics were provided by anesthesia team. Some IV sedation was provided. The patient was fairly agitated, moving around, so she was given a little bit deeper sedation. Left ankle was cleaned with alcohol and 15 mL of a 50:50 combination of 0.5% Marcaine with epinephrine and 1% lidocaine were then injected just proximal to the incision site. We then prepped the left ankle. Upon prepping she moved a little bit more so they gave her a little bit more deep sedation. We prepped the ankle and foot and draped in the usual sterile fashion. X-ray was brought in. I localized the exact location of the syndesmosis screw. A 1 cm incision was made in this area and I dissected directly down to the screw head. It was easy to palpate and locate. I then backed this out without difficulty. X-ray was brought in. I x-rayed the ankle and stressed the ankle. There was no widening of the clear space or sign of the syndesmosis instability. I then irrigated the wound. The subcutaneous tissues were closed with 3-0 Vicryl suture in buried interrupted fashion. The skin was closed with 4-0 nylon suture in simple fashion. The ankle was then cleaned and dried and a sterile dressing of Xeroform, 4 x 4, sterile cast padding and Jones bandage were applied. The patient then transferred to the recovery room in stable condition. The patient tolerated the procedure well with no complications. All needle and sponge counts were correct at the end of the operation. I attest to the content of the Intraoperative Record and any orders documented therein. Any exception s are noted below.
== END 2018-02-28 17:20 | disposition home or self-care (01) ==
LOC: C.ACU 12:39
PROVIDERS: ATTEND Orthopaedic Surgery Sports Medicine
DX: Z47.2 Encounter for removal of internal fixation device (principal); E66.01 Morbid (severe) obesity due to excess calories; J45.909 Unspecified asthma, uncomplicated; D69.1 Qualitative platelet defects; Z88.2 Allergy status to sulfonamides

== ENCOUNTER → 2018-06-11 | Outpatient (CLI) | payer OTHER ==
[~2018-06-11] MED LIST changes: -LACTATED RINGER'S 1000ML 1,000 ML IV SCH; +OXYC-90 PO; -OXYC1TAB3 PO; -ROPIVACAINE 0.5% 5 MG/ML 30 ML VIAL ONE
== END | disposition home or self-care (01) ==
LOC: C.PAPS 17:47
PROVIDERS: ATTEND Obstetrics & Gynecology
DX: Z01.419 Encounter for gynecological examination (general) (routine) without abnormal findings (principal)

== ENCOUNTER → 2018-06-11 | Outpatient (CLI) | payer OTHER | END | disposition home or self-care (01) | LOC: C.LABSPEC 16:45 | PROVIDERS: ATTEND Obstetrics & Gynecology | DX: Z11.3 Encounter for screening for infections with a predominantly sexual mode of transmission (principal) ==

== ENCOUNTER 2021-02-12 07:34 | Inpatient (IN) ==
[2021-02-12] MEDS ORDERED: OXYTOCIN 30 UNITS/500 ML BAG IV PRN ×2 (08:49→10:56)
--- NOTE | 2021-02-12 08:56 | Progress Note ---
Date of Service February 12, 2021 Assessment & Plan Admission and Anticipated Discharge Date Admission Date: February 12, 2021 Subjective Met pt and family induction for CHTN on no Meds Morbid obesity BMI; 56.5 Bedside sono; Vt Official sono requested Results & Data ([facility]) Vital Signs (Past 12 Hours) Vital Signs Temp Pulse Resp BP 02/12/21 07:49 36.8 C 20 02/12/21 07:46 76 123/79
--- NOTE | 2021-02-12 09:30 | Ultrasound Report ---
US OB limited CLINICAL HISTORY: position COMPARISON STUDY: No previous studies for comparison. TECHNIQUE: Transabdominal sonography of the fetus was performed to assess position. FINDINGS: Single viable intrauterine gestation is noted with normal heart rate of 125 bpm. Plea se note that a dedicated anatomical survey was not performed. The cervix was not assessed on th is exam. Presentation is cephalic. IMPRESSION: 1. Single viable intrauterine gestation with normal heart rate. 2. Cephalic presentation. ACT 112: Negative or not required by law. Electronically signed by: Az Bailey M.D. 02/12/2021 9:29 AM
[2021-02-12 09:35] LABS: Hematocrit (blood only) 37.7 % (37-47); Hemoglobin 12.3 g/dL (12.0-16.0); Mean Corpuscular Hgb Conc 32.6 g/dL (32-36); Mean Corpuscular Volume 82.9 fL (80-100); Mean Platelet Volume 10.2 fL (7.4-10.4); Platelet Count 240 K/uL (130-400); RDW Coefficient of Variation 16.2 % (11.5-14.5); RDW Standard Deviation 48.1 fL (36.4-46.3); Red Blood Count 4.55 M/uL (4.2-5.4); White Blood Count 8.78 K/uL (4.8-10.8)
[2021-02-12 09:56] LABS: Albumin Level 2.4 gm/dl (3.4-5.0); Calcium 8.4 mg/dl (8.5-10.1); Creatinine Clr Calc Pharmacy 179.8 ml/min; Est GFR (Non-African American) 123.4; Potassium 3.7 mmol/L (3.5-5.1)
[2021-02-12 09:59] LABS: Albumin Globulin Ratio 0.5 (0.9-2); Bilirubin,Total 0.3 mg/dl (0.2-1); Total Protein 7.4 gm/dl (6.4-8.2)
[2021-02-12] MEDS ORDERED: PENICILLIN G POTASSIUM 6 MU in DEXTROSE 5% 250 ML IV STA (10:54)
--- NOTE | 2021-02-12 10:54 | Progress Note ---
Date of Service February 12, 2021 Assessment & Plan Admission and Anticipated Discharge Date Admission Date: February 12, 2021 Subjective position confirmed by radiology FHR; CAT Ctx ; Minimal VE; thick/closed/-3 Pickering bulb placed with30 cc saline will start Pitocin Results & Data ([facility]) Vital Signs (Past 12 Hours) Vital Signs Temp Pulse Resp BP 02/12/21 07:49 36.8 C 20 02/12/21 07:46 76 123/79
[2021-02-12] MEDS: LACTATED RINGER'S 1,000 ML IV PRN ×2 (11:35→19:03)
[2021-02-12] MEDS: PENICILLIN G POTASSIUM 3 MU in DEXTROSE 5% 100 ML IV PRN ×2 (15:40→19:45)
[2021-02-12] MEDS ORDERED: DINOPROSTONE 10 MG INSERT PV ONE (22:40)
--- NOTE | 2021-02-12 23:46 | Progress Note ---
Date of Service February 12, 2021 Assessment & Plan Admission and Anticipated Discharge Date Admission Date: February 12, 2021 Subjective Pt doing well FHR; CAT1 Ctx; 4min Pitocin ; Off VE; 2cm/50/-2 Cervidil placed Results & Data ([facility]) Vital Signs (Past 12 Hours) Vital Signs Temp Pulse Resp BP 02/12/21 22:50 37.2 C 82 18 130/76 02/12/21 21:05 70 123/74 02/12/21 19:49 72 131/82 02/12/21 19:02 37.2 C 84 18 127/75 02/12/21 18:18 91 H 16 123/75 02/12/21 17:22 66 18 131/81 02/12/21 16:36 76 16 125/64 02/12/21 15:07 36.8 C 83 18 141/75 H 02/12/21 14:05 61 18 131/74 02/12/21 13:07 74 20 112/76 02/12/21 13:00 20 02/12/21 12:18 82 16 132/74
--- NOTE | 2021-02-12 23:49 | Progress Note ---
Date of Service February 12, 2021 Assessment & Plan Admission and Anticipated Discharge Date Admission Date: February 12, 2021 Subjective Pt doing well Induction day off Pitocin off Pt fed dinner FHR; CAT1 ctx 2-4min. mild intensity VE; 2/50/-2 Cervidil placed Results & Data ([facility]) Vital Signs (Past 12 Hours) Vital Signs Temp Pulse Resp BP 02/12/21 22:50 37.2 C 82 18 130/76 02/12/21 21:05 70 123/74 02/12/21 19:49 72 131/82 02/12/21 19:02 37.2 C 84 18 127/75 02/12/21 18:18 91 H 16 123/75 02/12/21 17:22 66 18 131/81 02/12/21 16:36 76 16 125/64 02/12/21 15:07 36.8 C 83 18 141/75 H 02/12/21 14:05 61 18 131/74 02/12/21 13:07 74 20 112/76 02/12/21 13:00 20 02/12/21 12:18 82 16 132/74
[2021-02-13] MEDS: PENICILLIN G POTASSIUM 3 MU in DEXTROSE 5% 100 ML IV PRN ×5 (01:55→18:50)
[2021-02-13] MEDS ORDERED: OXYTOCIN 30 UNITS/500 ML BAG IV PRN (08:43)
--- NOTE | 2021-02-13 08:43 | History & Physical Report ---
Date of Service February 13, 2021 Assessment & Plan (1) Obesity affecting in third trimester, antepartum: 30-year-old G1, P0 at 39 weeks and 6 days of gestation, induction of labor since yesterday for class III obesity, GBS positive Vital signs stable afebrile On penicillin heart rate reassuring cervix is favorable and AROM'ed Plan to augment with IV Pitocin Continue to monitor closely (2) Elective induction of labor planned: (3) GBS (group B Streptococcus carrier), +RV culture, currently : Admission and Anticipated Discharge Date Admission Date: February 12, 2021 History of Present Illness Primary Care Provider: Christiano Orellana MD Patient is a 30-year-old G1, P0 at 39 weeks and 6 days of gestation who was admitted yesterday for induction of labor at term due to class III obesity. Her was complicated by 1) history of chronic hypertension, not on any medication. 2) GBS positive 3) class III obesity 4) childhood history of platelet disorder, last work-up was normal and per hematology consultation she does not require any intervention nor any medication before procedures. 5) asthma, uses albuterol inhaler as needed once a month. No history of hospitalization nor IV steroid use. She was given [place] balloon with IV Pitocin which came out last night and she was placed Cervidil for cervical ripening. Cervidil came out this morning at 7 AM by itself. She feels contractions every 5 minutes but they are not painful. She denies leakage of fluid or vaginal bleeding. She reports good movements. Allergies Allergy/AdvReac Type Severity Reaction Status Date / Time nickel Allergy Mild RASH WITH Verified 01/16/20 07:59 JEWELRY Sulfa (Sulfonamide Allergy Mild RASH Verified 01/16/20 07:59 Antibiotics) NSAIDS (Non-Steroidal AdvReac Mild PLATELET Verified 01/16/20 07:59 Anti-Inflamma DISORDER Home Medications Medication Instructions Recorded Confirmed Type albuterol sulfate 2 puff INHALATION QID PRN 12/04/19 02/12/21 History prenat.vits,arleth,sev-oymt-pkuqk 1 tab PO DAILY 02/12/21 02/12/21 History [ Vitamin] Patient History Medical History (Updated 02/13/21 @ 08:45 by Aneesh Valencia MD) Abnormal platelet aggregation Follows w/ [facility] hematology Anxiety Asthma Osteoarthritis Slow to wake up after anesthesia Surgical History History of ankle surgery Left History of hand surgery left hand- two fingers ORIF History of tonsillectomy and adenoidectomy History of wisdom tooth extraction Family History Mother Crohn's disease Father Lung cancer Social History Smoking Status: Never smoker Second Hand Exposure: Yes (as a child); Hx Alcohol Use: No Hx Substance Use: No Preferred Language: Danish Communication Ability: Effective 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 Beliefs That Will Affect Care: None marital status: Single Current Living Situation: Family Current Living Situation Comment: Lives with mother Other Information That Helps Us Care for You: No Feels Safe at Home: Yes Safety Concerns: Feels Safe At This Time 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 No h/o HSV remote gh/o chlamydia, treated and was neg at NOB visit Review of Systems All systems reviewed & are unremarkable except as noted in HPI & below Physical Exam Constitutional: WD/WN, vitals as above well nourished and + acute distress (she seems uncomfortable with ctxs but denies any pain) Gastrointestinal (Abdomen): normal bowel sounds, soft, nontender, no hepatosp lenomegaly (gravid, obese) Genitourinary: no vaginal lesions, no adnexal mass normal external appearance Manual OB Exam: + cervical dilation 3 cm, + cervical effacement 50%, + station -2 and + amniotic fluid (AROM, clear fluid) OB Exam Monitor Tracing: + external uterine monitor used and + category I Results & Data ([facility]) Vital Signs (Past 12 Hours) Vital Signs Temp Pulse Resp BP 02/13/21 07:17 37.3 C 77 22 131/70 02/13/21 03:09 36.9 C 74 16 142/65 H 02/12/21 22:50 37.2 C 82 18 130/76 02/12/21 21:05 70 123/74 Laboratory Results Lab Results 02/12/21 02/12/21 02/12/21 Range/Units 08:21 08:21 09:16 WBC 8.78 (4.8-10.8) K/uL RBC 4.55 (4.2-5.4) M/uL Hgb 12.3 (12.0-16.0) g/dL Hct 37.7 (37-47) % MCV 82.9 (80-100) fL MCH 27.0 (25-34) pg MCHC 32.6 (32-36) g/dL RDW Std Deviation 48.1 H (36.4-46.3) fL RDW Coeff of Hillary 16.2 H (11.5-14.5) % Plt Count 240 (130-400) K/uL MPV 10.2 (7.4-10.4) fL Sodium (136-145) mmol/L Potassium (3.5-5.1) mmol/L Chloride (98-107) mmol/L Carbon Dioxide (21-32) mmol/L Anion Gap (3-11) BUN (7-18) mg/dl Creatinine (0.6-1.2) mg/dl Est Cr Clr Drug Dosing ml/min Est GFR ( Amer) Est GFR (Non-Af Amer) BUN/Creatinine Ratio (10-20) Glucose (70-99) mg/dl Calcium (8.5-10.1) mg/dl Total Bilirubin (0.2-1) mg/dl AST (15-37) U/L ALT (12-78) U/L Alkaline Phosphatase (45-117) U/L Total Protein (6.4-8.2) gm/dl Albumin (3.4-5.0) gm/dl Globulin (2.5-4.0) gm/dl Albumin/Globulin Ratio (0.9-2) COVID-19 Eval Order Covid19 IDNow atMWYC SARS-CoV-2, RNA, NAAT NEGATIVE (NEGATIVE) 02/12/21 Range/Units 09:16 WBC (4.8-10.8) K/uL RBC (4.2-5.4) M/uL Hgb (12.0-16.0) g/dL Hct (37-47) % MCV (80-100) fL MCH (25-34) pg MCHC (32-36) g/dL RDW Std Deviation (36.4-46.3) fL RDW Coeff of Hillary (11.5-14.5) % Plt Count (130-400) K/uL MPV (7.4-10.4) fL Sodium 136 (136-145) mmol/L Potassium 3.7 (3.5-5.1) mmol/L Chloride 107 (98-107) mmol/L Carbon Dioxide 23 (21-32) mmol/L Anion Gap 6.0 (3-11) BUN 9 (7-18) mg/dl Creatinine 0.61 (0.6-1.2) mg/dl Est Cr Clr Drug Dosing 179.8 ml/min Est GFR ( Amer) 143.0 Est GFR (Non-Af Amer) 123.4 BUN/Creatinine Ratio 15.0 (10-20) Glucose 76 (70-99) mg/dl Calcium 8.4 L (8.5-10.1) mg/dl Total Bilirubin 0.3 (0.2-1) mg/dl AST 13 L (15-37) U/L ALT 14 (12-78) U/L Alkaline Phosphatase 105 (45-117) U/L Total Protein 7.4 (6.4-8.2) gm/dl Albumin 2.4 L (3.4-5.0) gm/dl Globulin 5.0 H (2.5-4.0) gm/dl Albumin/Globulin Ratio 0.5 L (0.9-2) COVID-19 Eval Order SARS-CoV-2, RNA, NAAT (NEGATIVE)
[2021-02-13] MEDS: LACTATED RINGER'S 1,000 ML IV PRN ×2 (10:10→14:39)
[2021-02-13] MEDS ORDERED: SODIUM CHLORIDE 0.9% INJ 10 ML VIAL ONE (14:10)
[2021-02-13] MEDS ORDERED: BUPIVACAINE 0.25% 30 ML VIAL ONE (14:10)
[2021-02-13] MEDS ORDERED: ePHEDrine sulfate 50 MG/ML AMP ONE (14:10)
[2021-02-13] MEDS ORDERED: fentaNYL citrate 100 MCG/2 ML VIAL ONE (14:10)
[2021-02-13] MEDS ORDERED: fentaNYL 2MCG/ML ROPIVACAINE 1.25MG/ML 100 ML BAG EPI ONE (14:11)
--- NOTE | 2021-02-13 14:21 | Obstetrical Progress Note ---
Date of Service February 13, 2021 Assessment & Plan Admission and Anticipated Discharge Date Admission Date: February 12, 2021 Subjective Patient is reevaluated She is painful and desires epidural for pain VE; 3-4 cm/ 50%/-2 FHR categ i [place]: ctxs q 2-5 mi, pitocin is at 12 miu/min Continue to monitor Results & Data ([facility]) Vital Signs (Past 12 Hours) Vital Signs Temp Pulse Resp BP 02/13/21 13:32 65 136/78 02/13/21 12:20 76 129/66 02/13/21 11:21 61 142/78 H 02/13/21 10:19 37.3 C 70 18 130/75 02/13/21 07:17 37.3 C 77 22 131/70 02/13/21 03:09 36.9 C 74 16 142/65 H
[2021-02-13] MEDS ORDERED: NALOXONE HCL 0.4 MG/1 ML VIAL/CARP IV PRN ×2 (14:34→22:51)
[2021-02-13] MEDS ORDERED: diphenhydrAMINE 50 MG/ML VIAL IV PRN ×2 (14:34→22:51)
[2021-02-13] MEDS ORDERED: NALOXONE HCL 1 MG in SODIUM CHLORIDE 0.9% 1000ML 1,000 ML IV PRN ×2 (14:34→22:51)
[2021-02-13] MEDS ORDERED: fentaNYL 2MCG/ML ROPIVACAINE 1.25MG/ML 100 ML BAG EPI PRN (14:34)
[2021-02-13] MEDS ORDERED: ePHEDrine sulfate 50 MG/ML AMP IV PRN ×2 (14:34→22:51)
[2021-02-13] MEDS ORDERED: ONDANSETRON INJ 2 MG/ML 2 ML VIAL IV PRN ×2 (14:34→22:51)
[2021-02-13] MEDS ORDERED: PROMETHAZINE HCL 25 MG in SODIUM CHLORIDE 0.9% 50 ML IV PRN (14:34)
--- NOTE | 2021-02-13 14:34 | Anesthesiology Consultation ---
Date of Service February 13, 2021 Assessment & Plan ASA ASA3 Proposed Anesthesia Anesthesia Type: Labor Epidural Risk / Benefits Reviewed With: PT / POA / Parent / Guardian, Accepts Plan and Informed Consent Obtained History Height/Weight Height: 5 ft 1 in Weight: 135.624 kg Allergies Allergy/AdvReac Type Severity Reaction Status Date / Time nickel Allergy Mild RASH WITH Verified 01/16/20 07:59 JEWELRY Sulfa (Sulfonamide Allergy Mild RASH Verified 01/16/20 07:59 Antibiotics) NSAIDS (Non-Steroidal AdvReac Mild PLATELET Verified 01/16/20 07:59 Anti-Inflamma DISORDER Medications Home Medications Medication Instructions Recorded Confirmed Last Taken albuterol sulfate 2 puff INHALATION QID PRN 12/04/19 02/12/21 Unknown prenat.vits,arleth,fzp-cqsz-cteme 1 tab PO DAILY 02/12/21 02/12/21 02/09/21 [ Vitamin] Active Medications Generic Name Dose Route Start Last Admin Trade Name Freq PRN Reason Stop Dose Admin Lactated Ringer's 1,000 mls @ 125 mls/hr 02/12/21 08:49 02/13/21 14:39 Lr IV 02/14/21 08:48 999 mls/hr .Q8H PRN Administration L&D Protocol Protocol Penicillin G Potassium 3 mu/ 106 mls @ 100 mls/hr 02/12/21 10:54 02/13/21 14:29 Dextrose IV 02/22/21 10:53 100 mls/hr Q4H PRN Administration Give until delivery Oxytocin 30 units in 500 mls @ 0 mls/hr 02/12/21 10:56 02/12/21 21:25 Pitocin IV 02/14/21 10:55 0 units/hr .Q0M PRN 0 mls/hr Labor Induction/Augmentation Titration Protocol 0 UNITS/HR Oxytocin 30 units in 500 mls @ 12 mls/hr 02/13/21 08:43 02/13/21 13:04 Pitocin IV 02/15/21 08:42 0.72 units/hr .Q24H PRN 12 mls/hr Labor Induction/Augmentation Titration Protocol 0.72 UNITS/HR Ropivacaine 100 ml 02/13/21 14:34 02/13/21 15:12 Fentanyl 2mcg/Ml Ropivacaine 1.25mg/Ml 100 Ml Bag EPI 02/14/21 14:33 100 ml PRN PRN Administration Pain R/T Labor Protocol Past Medical History Medical History (Updated 02/13/21 @ 08:45 by Aneesh Valencia MD) Abnormal platelet aggregation Follows w/ [facility] hematology Anxiety Asthma Osteoarthritis Slow to wake up after anesthesia Exercise / Class Metabolic Activity II 4-5 Yardwork/Stairs/Walk up hill Past Family History Family History Mother Crohn's disease Father Lung cancer Past Surgical History Surgical History History of ankle surgery Left History of hand surgery left hand- two fingers ORIF History of tonsillectomy and adenoidectomy History of wisdom tooth extraction Past Anesthesia History No Hx of Anesthesia Complications and No Family Hx of Anesthesia Complications History of PONV No Hx of PONV and No Hx of Motion Sickness Social History Smoking Status: Never smoker Hx Alcohol Use: No Hx Substance Use: No substance use type: does not use Review of Systems denies fever/cough/ colds/ chest pain/ SOB/ TOOTIE denies TOOTIE Physical Exam Vital Signs Last Vital Signs Temp 37.3 C 02/13/21 10:19 Pulse 80 02/13/21 15:17 Resp 18 02/13/21 10:19 BP 130/72 02/13/21 15:17 Pulse Ox 99 02/13/21 15:17 ENMT Mouth: no TMJ abnormality and no dentition abnormality Thyromental Distance: > or= 3.5 Finger Breadths Mallampati Class: II Neck neck extension not limited Respiratory normal respiratory effort; no respiratory distress Auscultation: lungs clear to auscultation bilaterally Cardiovascular Rate/Rhythm: regular rate and regular rhythm Neurologic moves all extremities Psychiatric Orientation: alert and oriented x 3 Testing Laboratory Results 02/12/21 09:16 02/12/21 09:16
[2021-02-13] MEDS ORDERED: LIDOCAINE HCL 1% 20 ML VIAL ONE (15:00)
--- NOTE | 2021-02-13 15:41 | Obstetrical Progress Note ---
Date of Service February 13, 2021 Assessment & Plan Admission and Anticipated Discharge Date Admission Date: February 12, 2021 Subjective Patient has received epidural, comfortable now No complaints FHR categ I [place] ctxs q 2-3 min, pitocin is at 14 miu/min Continue to monitor Results & Data ([facility]) Vital Signs (Past 12 Hours) Vital Signs Temp Pulse Resp BP Pulse Ox 02/13/21 15:37 79 99 02/13/21 15:33 71 123/61 02/13/21 15:32 85 98 02/13/21 15:27 75 99 02/13/21 15:22 91 H 98 02/13/21 15:19 82 125/78 02/13/21 15:17 80 130/72 99 02/13/21 15:15 75 128/67 02/13/21 15:13 88 137/71 02/13/21 15:12 88 98 02/13/21 15:11 74 133/65 02/13/21 15:10 80 156/68 H 02/13/21 15:07 94 H 99 02/13/21 15:02 85 100 02/13/21 14:57 92 H 100 02/13/21 14:52 72 100 02/13/21 14:47 70 100 02/13/21 14:42 83 100 02/13/21 14:41 71 92 02/13/21 14:37 67 100 02/13/21 14:32 71 99 02/13/21 14:27 60 100 02/13/21 13:32 65 136/78 02/13/21 12:20 76 129/66 02/13/21 11:21 61 142/78 H 02/13/21 10:19 37.3 C 70 18 130/75 02/13/21 07:17 37.3 C 77 22 131/70
--- NOTE | 2021-02-13 17:16 | Obstetrical Progress Note ---
Date of Service February 13, 2021 Assessment & Plan Admission and Anticipated Discharge Date Admission Date: February 12, 2021 Subjective Patient is reevaluated She is still comfortable, no complaints Pitocin is at 16 miu/min FHR categ I [place]: ctxs q 2-4 min VE; unchanged, 3-4 cm/ 50%/ -2, coned head She has received multiple doses of PNC since yesterday for GBS IUPC is placed to monitor contractions Pickering catheter is placed Will continue to monitor Results & Data ([facility]) Vital Signs (Past 12 Hours) Vital Signs Temp Pulse Resp BP Pulse Ox 02/13/21 17:13 74 115/66 02/13/21 17:12 74 99 02/13/21 17:07 71 100 02/13/21 17:03 68 121/66 02/13/21 17:02 70 98 02/13/21 16:57 74 97 02/13/21 16:53 66 114/64 02/13/21 16:52 75 96 02/13/21 16:47 69 98 02/13/21 16:43 78 104/57 L 02/13/21 16:42 76 97 02/13/21 16:37 81 99 02/13/21 16:33 66 130/69 02/13/21 16:32 73 98 02/13/21 16:27 72 98 02/13/21 16:23 70 123/63 02/13/21 16:22 77 99 02/13/21 16:17 72 98 02/13/21 16:13 73 123/61 02/13/21 16:12 73 99 02/13/21 16:07 84 98 02/13/21 16:03 72 123/62 02/13/21 16:02 83 98 02/13/21 15:57 90 100 02/13/21 15:53 77 130/73 02/13/21 15:52 85 98 02/13/21 15:47 92 H 99 02/13/21 15:44 84 128/73 02/13/21 15:42 84 98 02/13/21 15:37 79 99 02/13/21 15:33 71 123/61 02/13/21 15:32 85 98 02/13/21 15:27 75 99 02/13/21 15:22 91 H 98 04/03/21 15:19 82 125/78 04/03/21 15:17 80 130/72 99 02/13/21 15:15 75 128/67 02/13/21 15:13 88 137/71 02/13/21 15:12 88 98 02/13/21 15:11 74 133/65 02/13/21 15:10 80 156/68 H 02/13/21 15:07 94 H 99 02/13/21 15:02 85 100 02/13/21 14:57 92 H 100 02/13/21 14:52 72 100 02/13/21 14:47 70 100 02/13/21 14:42 83 100 02/13/21 14:41 71 92 02/13/21 14:37 67 100 02/13/21 14:32 71 99 02/13/21 14:27 60 100 02/13/21 13:32 65 136/78 02/13/21 12:20 76 129/66 02/13/21 11:21 61 142/78 H 02/13/21 10:19 37.3 C 70 18 130/75 02/13/21 07:17 37.3 C 77 22 131/70
--- NOTE | 2021-02-13 19:34 | Obstetrical Progress Note ---
Date of Service February 13, 2021 Assessment & Plan Admission and Anticipated Discharge Date Admission Date: February 12, 2021 Subjective Patient is asking for VE and C Section She is comfortable VE: 4/ 60%/ -2, coned head, unable to feel sutures FHR categ I [place] ctxs q 2-3 min, adequate contraction documented by IUPC Discussed the risks of Csection and she decided to wait for another 2 hours and then re evaluate All questions were answered Results & Data ([facility]) Vital Signs (Past 12 Hours) Vital Signs Temp Pulse Resp BP Pulse Ox 02/13/21 19:27 83 100 02/13/21 19:24 73 123/72 02/13/21 19:22 76 100 02/13/21 19:17 74 99 02/13/21 19:13 72 125/68 02/13/21 19:12 80 99 02/13/21 19:10 36.8 C 18 02/13/21 19:07 77 100 02/13/21 19:04 74 150/89 H 02/13/21 19:02 70 98 02/13/21 19:00 78 94 02/13/21 18:57 79 98 02/13/21 18:53 71 134/80 02/13/21 18:52 77 99 02/13/21 18:47 76 99 02/13/21 18:43 76 132/74 02/13/21 18:42 66 98 02/13/21 18:37 79 97 02/13/21 18:33 78 128/74 02/13/21 18:32 83 97 02/13/21 18:27 72 97 02/13/21 18:23 66 130/73 02/13/21 18:22 71 97 02/13/21 18:17 75 98 02/13/21 18:14 68 128/72 02/13/21 18:12 69 99 02/13/21 18:07 76 100 02/13/21 18:03 71 130/76 02/13/21 18:02 80 99 02/13/21 17:57 70 100 02/13/21 17:53 77 131/76 02/13/21 17:52 71 100 02/13/21 17:47 70 100 02/13/21 17:43 82 129/73 02/13/21 17:42 76 100 02/13/21 17:37 77 100 02/13/21 17:34 73 130/75 02/13/21 17:32 70 99 02/13/21 17:27 89 99 02/13/21 17:24 76 117/67 02/13/21 17:22 36.5 C 77 18 100 02/13/21 17:17 77 100 02/13/21 17:13 74 115/66 02/13/21 17:12 74 99 02/13/21 17:07 71 100 02/13/21 17:03 68 121/66 02/13/21 17:02 70 98 02/13/21 16:57 74 97 02/13/21 16:53 66 114/64 02/13/21 16:52 75 96 02/13/21 16:47 69 98 02/13/21 16:43 78 104/57 L 02/13/21 16:42 76 97 02/13/21 16:37 81 99 02/13/21 16:33 66 130/69 02/13/21 16:32 73 98 02/13/21 16:27 72 98 02/13/21 16:23 70 123/63 02/13/21 16:22 77 99 02/13/21 16:17 72 98 02/13/21 16:13 73 123/61 02/13/21 16:12 73 99 02/13/21 16:07 84 98 02/13/21 16:03 72 123/62 02/13/21 16:02 83 98 02/13/21 15:57 90 100 02/13/21 15:53 77 130/73 02/13/21 15:52 85 98 02/13/21 15:47 92 H 99 02/13/21 15:44 84 128/73 02/13/21 15:42 84 98 02/13/21 15:37 79 99 02/13/21 15:33 71 123/61 02/13/21 15:32 85 98 02/13/21 15:27 75 99 02/13/21 15:22 91 H 98 02/13/21 15:19 82 125/78 02/13/21 15:17 80 130/72 99 02/13/21 15:15 75 128/67 02/13/21 15:13 88 137/71 02/13/21 15:12 88 98 02/13/21 15:11 74 133/65 02/13/21 15:10 80 156/68 H 02/13/21 15:07 94 H 99 02/13/21 15:02 85 100 02/13/21 14:57 92 H 100 02/13/21 14:52 72 100 02/13/21 14:47 70 100 02/13/21 14:42 83 100 02/13/21 14:41 71 92 02/13/21 14:37 67 100 02/13/21 14:32 71 99 02/13/21 14:27 60 100 02/13/21 13:32 65 136/78 02/13/21 12:20 76 129/66 02/13/21 11:21 61 142/78 H 02/13/21 10:19 37.3 C 70 18 130/75
[2021-02-13] MEDS ORDERED: CLINDAMYCIN 900 MG in DEXTROSE 5% 50 ML IV SCH (20:00)
[2021-02-13] MEDS ORDERED: CITRIC ACID/SODIUM CITRATE 15 ML UDC ONE (21:25)
[2021-02-13] MEDS ORDERED: LIDOCAINE/EPINEPHRINE 2% 1:200,000 20 ML SDV ONE (21:29)
[2021-02-13] MEDS ORDERED: ONDANSETRON INJ 2 MG/ML 2 ML VIAL ONE (21:29)
[2021-02-13] MEDS ORDERED: OXYTOCIN 10 UNITS/ML VIAL ONE (21:29)
[2021-02-13] MEDS ORDERED: PHENYLEPHRINE 100MCG/ML 5ML SYR ONE (21:29)
[2021-02-13] MEDS ORDERED: LACTATED RINGER'S 1,000 ML IV SCH ×3 (21:30→23:30)
--- NOTE | 2021-02-13 21:33 | Obstetrical Progress Note ---
Date of Service February 13, 2021 Assessment & Plan Admission and Anticipated Discharge Date Admission Date: February 12, 2021 Subjective Patient is reevaluated. She is still comfortable no complaints. Vaginal exam, cervix is unchanged, still 4 cm dilated, 60% effaced, head at -2 station, coned head. heart rate category 1 [place]/IUPC, contractions every 2 to 3 minutes with amplitude of 75-80 [place] units. Discussed the findings and failure to progress despite adequate uterine contractions and AROM for over 12 hours Patient desires primary . She understands is a major surgery with risks of bleeding, infection, injury to surrounding organs like bowels bladder and ureters. More risk of blood clots in deep veins of legs and lungs. Longer recovery. She understands all and signed an informed consent. All questions were answered. Results & Data ([facility]) Vital Signs (Past 12 Hours) Vital Signs Temp Pulse Resp BP Pulse Ox 02/13/21 21:27 81 98 02/13/21 21:23 72 135/80 02/13/21 21:22 74 98 02/13/21 21:17 80 95 02/13/21 21:12 75 95 02/13/21 21:08 88 127/78 02/13/21 21:07 95 H 96 02/13/21 21:02 85 96 02/13/21 21:00 36.9 C 18 02/13/21 20:57 75 96 02/13/21 20:53 77 123/66 02/13/21 20:52 79 96 02/13/21 20:47 70 98 02/13/21 20:42 65 96 02/13/21 20:38 71 126/73 02/13/21 20:37 66 98 02/13/21 20:32 94 H 100 02/13/21 20:30 18 02/13/21 20:27 76 100 02/13/21 20:23 70 126/71 02/13/21 20:22 70 100 02/13/21 20:17 73 99 02/13/21 20:13 79 115/55 L 02/13/21 20:12 76 99 02/13/21 20:07 72 100 02/13/21 20:04 71 126/60 02/13/21 20:02 73 100 02/13/21 20:00 18 02/13/21 19:57 71 100 02/13/21 19:53 76 123/67 02/13/21 19:52 73 99 02/13/21 19:47 72 99 02/13/21 19:43 71 121/59 L 02/13/21 19:42 73 100 02/13/21 19:37 67 99 02/13/21 19:35 68 118/59 L 02/13/21 19:32 71 99 02/13/21 19:30 18 02/13/21 19:27 83 100 02/13/21 19:24 73 123/72 02/13/21 19:22 76 100 02/13/21 19:17 74 99 02/13/21 19:13 72 125/68 02/13/21 19:12 80 99 02/13/21 19:10 36.8 C 18 02/13/21 19:07 77 100 02/13/21 19:04 74 150/89 H 02/13/21 19:02 70 98 02/13/21 19:00 78 94 02/13/21 18:57 79 98 02/13/21 18:53 71 134/80 02/13/21 18:52 77 99 02/13/21 18:47 76 99 02/13/21 18:43 76 132/74 02/13/21 18:42 66 98 02/13/21 18:37 79 97 02/13/21 18:33 78 128/74 02/13/21 18:32 83 97 02/13/21 18:27 72 97 02/13/21 18:23 66 130/73 02/13/21 18:22 71 97 02/13/21 18:17 75 98 02/13/21 18:14 68 128/72 02/13/21 18:12 69 99 02/13/21 18:07 76 100 02/13/21 18:03 71 130/76 02/13/21 18:02 80 99 02/13/21 17:57 70 100 02/13/21 17:53 77 131/76 02/13/21 17:52 71 100 02/13/21 17:47 70 100 02/13/21 17:43 82 129/73 02/13/21 17:42 76 100 02/13/21 17:37 77 100 02/13/21 17:34 73 130/75 02/13/21 17:32 70 99 02/13/21 17:27 89 99 02/13/21 17:24 76 117/67 02/13/21 17:22 36.5 C 77 18 100 02/13/21 17:17 77 100 02/13/21 17:13 74 115/66 02/13/21 17:12 74 99 02/13/21 17:07 71 100 02/13/21 17:03 68 121/66 02/13/21 17:02 70 98 02/13/21 16:57 74 97 02/13/21 16:53 66 114/64 02/13/21 16:52 75 96 02/13/21 16:47 69 98 02/13/21 16:43 78 104/57 L 02/13/21 16:42 76 97 02/13/21 16:37 81 99 02/13/21 16:33 66 130/69 02/13/21 16:32 73 98 02/13/21 16:27 72 98 02/13/21 16:23 70 123/63 02/13/21 16:22 77 99 02/13/21 16:17 72 98 02/13/21 16:13 73 123/61 02/13/21 16:12 73 99 02/13/21 16:07 84 98 02/13/21 16:03 72 123/62 02/13/21 16:02 83 98 02/13/21 15:57 90 100 02/13/21 15:53 77 130/73 02/13/21 15:52 85 98 02/13/21 15:47 92 H 99 02/13/21 15:44 84 128/73 02/13/21 15:42 84 98 02/13/21 15:37 79 99 02/13/21 15:33 71 123/61 02/13/21 15:32 85 98 02/13/21 15:27 75 99 02/13/21 15:22 91 H 98 02/13/21 15:19 82 125/78 02/13/21 15:17 80 130/72 99 02/13/21 15:15 75 128/67 02/13/21 15:13 88 137/71 02/13/21 15:12 88 98 02/13/21 15:11 74 133/65 02/13/21 15:10 80 156/68 H 04/03/21 15:07 94 H 99 02/13/21 15:02 85 100 02/13/21 14:57 92 H 100 02/13/21 14:52 72 100 02/13/21 14:47 70 100 02/13/21 14:42 83 100 02/13/21 14:41 71 92 02/13/21 14:37 67 100 02/13/21 14:32 71 99 02/13/21 14:27 60 100 02/13/21 13:32 65 136/78 02/13/21 12:20 76 129/66 02/13/21 11:21 61 142/78 H 02/13/21 10:19 37.3 C 70 18 130/75
[2021-02-13] MEDS ORDERED: MoRPHine SULFATE PF 1 MG/ML 10 ML AMP/VIAL ONE (21:35)
[2021-02-13] MEDS ORDERED: AZITHROMYCIN 500 MG in DEXTROSE 5% 250 ML IV SCH (21:45)
[2021-02-13] MEDS ORDERED: CEFAZOLIN 3000 MG IV SCH (21:45)
[2021-02-13] MEDS ORDERED: miSOPROStoL 200 MCG TAB ONE (21:52)
[2021-02-13] MEDS ORDERED: OXYTOCIN 10 UNITS/ML VIAL IM ONE (22:43)
[2021-02-13] MEDS ORDERED: MoRPHine SULFATE PF 1 MG/ML 10 ML AMP/VIAL EPI ONE (22:51)
[2021-02-13] MEDS ORDERED: LACTATED RINGER'S 500 ML IV PRN (22:51)
[2021-02-13] MEDS ORDERED: MEPERIDINE HCL 25 MG/ML CARP/VIAL IV PRN (22:51)
[2021-02-13] MEDS ORDERED: MoRPHine SULFATE 2 MG/ML CARP IV PRN (22:51)
[2021-02-13] MEDS ORDERED: NALOXONE HCL 0.08 MG in SYRINGE 1.8 ML IV PRN (22:51)
[2021-02-13] MEDS ORDERED: NO NARCOTICS OR SEDATIVES SCH (23:00)
[2021-02-13] MEDS ORDERED: SODIUM CHLORIDE 0.9% 1000ML 1,000 ML IV SCH (23:00)
[2021-02-13] MEDS ORDERED: DC INTRASPINAL MORPHINE SCH (23:00)
[2021-02-13] MEDS ORDERED: BENZOCAINE 20% AER SPR 82.5 GM CAN EXT PRN (23:22)
[2021-02-13] MEDS ORDERED: SENNA 8.6 MG TAB PO PRN (23:22)
[2021-02-13] MEDS ORDERED: DIPHTHERIA/TETANUS/PERTUSSIS 0.5 ML SYR/VIAL IM ONE (23:22)
[2021-02-13] MEDS ORDERED: MEASLES, MUMPS & RUBELLA VIRUS VIAL SQ ONE (23:22)
[2021-02-13] MEDS ORDERED: SUPERCREAM 0.870% 15 GM JAR EXT PRN (23:22)
[2021-02-13] MEDS ORDERED: HYDROCORTISONE ACETATE 25 MG SUPP PR PRN (23:22)
[2021-02-13] MEDS ORDERED: IBUPROFEN 600 MG TAB PO PRN (23:22)
[2021-02-13] MEDS ORDERED: MAGNESIUM HYDROXIDE SUSP 30 ML UDC PO PRN (23:22)
--- NOTE | 2021-02-13 23:22 | Post Operative Brief Note ---
Immediate Post Op Note v1 Date of Surgery February 13, 2021 Pre & Post Diagnosis Operation Date: 02/13/21 22:10 Pre-Op Diagnosis: 1. Arrest of dilation Post-Op Diagnosis: 1. Same 2. Delivery of live female child at 2231 (Main OR 3) I identified the patient and participated in the time-out.: Yes Procedure Operation Date: 02/13/21 22:10 Actual Procedures p Section in LD - Aneesh Valencia MD Surgeon Aneesh Valencia MD Senior Climate Advisor Dr [place] Estimated Blood Loss 600 Findings Consistent with Post-Op Diagnosis Drains [place] Catheter (400 ml) Anesthesia Type Labor Epidural Complications none Disposition Accompanied Patient To Recovery: Yes Disposition: L&D
--- NOTE | 2021-02-14 00:18 | Anesthesia Procedure Note ---
Date of Service February 14, 2021 Anesthesia Post Epidural Note Vital Signs Vital Signs: Temp Pulse Resp BP Pulse Ox 37.1 C 90 16 161/64 H 98 02/13/21 23:36 02/14/21 00:16 02/13/21 23:36 02/14/21 00:16 02/14/21 00:16 Pain Intensity Lower Abdomen: Pain Intensity: 3 Notes Mental Status: alert / awake / arousable and participated in evaluation Patient Amnestic to Procedure: No Nausea / Vomiting: adequately controlled Pain: adequately controlled Airway Patency, RR, SpO2: stable & adequate BP & HR: stable & adequate Hydration State: stable & adequate Neuraxial Anesthesia: was administered and sensory block is resolving Anesthetic Complications: no major complications apparent and Pt Satisfied with anesthetic care Epidural: Removed without complications and With tip intact
--- NOTE | 2021-02-14 00:19 | Anesthesiology Progress Note ---
Date of Service February 14, 2021 Anesthesia Post Procedure Vital Signs Vital Signs: Temp Pulse Resp BP Pulse Ox 02/14/21 00:16 90 161/64 H 98 02/14/21 00:11 91 H 100 02/14/21 00:06 95 H 141/66 H 100 02/14/21 00:01 105 H 93 02/13/21 23:57 91 H 91 02/13/21 23:56 74 142/71 H 99 02/13/21 23:51 84 99 02/13/21 23:46 106 H 105/70 99 02/13/21 23:43 92 H 87 L 02/13/21 23:41 83 98 02/13/21 23:36 37.1 C 87 16 100/70 100 02/13/21 21:57 91 H 93 02/13/21 21:53 76 152/89 H 02/13/21 21:52 72 98 02/13/21 21:47 69 98 02/13/21 21:42 74 98 02/13/21 21:38 68 144/86 H 02/13/21 21:37 87 97 02/13/21 21:32 77 98 02/13/21 21:30 18 02/13/21 21:27 81 98 02/13/21 21:23 72 135/80 02/13/21 21:22 74 98 02/13/21 21:17 80 95 02/13/21 21:12 75 95 02/13/21 21:08 88 127/78 02/13/21 21:07 95 H 96 02/13/21 21:02 85 96 02/13/21 21:00 36.9 C 18 02/13/21 20:57 75 96 02/13/21 20:53 77 123/66 02/13/21 20:52 79 96 02/13/21 20:47 70 98 02/13/21 20:42 65 96 02/13/21 20:38 71 126/73 02/13/21 20:37 66 98 02/13/21 20:32 94 H 100 02/13/21 20:30 18 02/13/21 20:27 76 100 02/13/21 20:23 70 126/71 02/13/21 20:22 70 100 02/13/21 20:17 73 99 02/13/21 20:13 79 115/55 L 02/13/21 20:12 76 99 02/13/21 20:07 72 100 02/13/21 20:04 71 126/60 02/13/21 20:02 73 100 02/13/21 20:00 18 02/13/21 19:57 71 100 02/13/21 19:53 76 123/67 02/13/21 19:52 73 99 02/13/21 19:47 72 99 02/13/21 19:43 71 121/59 L 02/13/21 19:42 73 100 02/13/21 19:37 67 99 02/13/21 19:35 68 118/59 L 02/13/21 19:32 71 99 02/13/21 19:30 18 02/13/21 19:27 83 100 02/13/21 19:24 73 123/72 02/13/21 19:22 76 100 02/13/21 19:17 74 99 02/13/21 19:13 72 125/68 02/13/21 19:12 80 99 02/13/21 19:10 36.8 C 18 02/13/21 19:07 77 100 02/13/21 19:04 74 150/89 H 02/13/21 19:02 70 98 02/13/21 19:00 78 94 02/13/21 18:57 79 98 02/13/21 18:53 71 134/80 02/13/21 18:52 77 99 02/13/21 18:47 76 99 02/13/21 18:43 76 132/74 02/13/21 18:42 66 98 02/13/21 18:37 79 97 02/13/21 18:33 78 128/74 02/13/21 18:32 83 97 02/13/21 18:27 72 97 02/13/21 18:23 66 130/73 02/13/21 18:22 71 97 02/13/21 18:17 75 98 02/13/21 18:14 68 128/72 02/13/21 18:12 69 99 02/13/21 18:07 76 100 02/13/21 18:03 71 130/76 02/13/21 18:02 80 99 02/13/21 17:57 70 100 02/13/21 17:53 77 131/76 02/13/21 17:52 71 100 02/13/21 17:47 70 100 02/13/21 17:43 82 129/73 02/13/21 17:42 76 100 02/13/21 17:37 77 100 02/13/21 17:34 73 130/75 02/13/21 17:32 70 99 02/13/21 17:27 89 99 02/13/21 17:24 76 117/67 02/13/21 17:22 36.5 C 77 18 100 02/13/21 17:17 77 100 02/13/21 17:13 74 115/66 02/13/21 17:12 74 99 02/13/21 17:07 71 100 02/13/21 17:03 68 121/66 02/13/21 17:02 70 98 02/13/21 16:57 74 97 02/13/21 16:53 66 114/64 02/13/21 16:52 75 96 02/13/21 16:47 69 98 02/13/21 16:43 78 104/57 L 02/13/21 16:42 76 97 02/13/21 16:37 81 99 02/13/21 16:33 66 130/69 02/13/21 16:32 73 98 02/13/21 16:27 72 98 02/13/21 16:23 70 123/63 02/13/21 16:22 77 99 02/13/21 16:17 72 98 02/13/21 16:13 73 123/61 02/13/21 16:12 73 99 02/13/21 16:07 84 98 02/13/21 16:03 72 123/62 02/13/21 16:02 83 98 02/13/21 15:57 90 100 02/13/21 15:53 77 130/73 02/13/21 15:52 85 98 02/13/21 15:47 92 H 99 02/13/21 15:44 84 128/73 02/13/21 15:42 84 98 02/13/21 15:37 79 99 02/13/21 15:33 71 123/61 02/13/21 15:32 85 98 02/13/21 15:27 75 99 02/13/21 15:22 91 H 98 02/13/21 15:19 82 125/78 02/13/21 15:17 80 130/72 99 04/03/21 15:15 75 128/67 02/13/21 15:13 88 137/71 02/13/21 15:12 88 98 02/13/21 15:11 74 133/65 02/13/21 15:10 80 156/68 H 02/13/21 15:07 94 H 99 02/13/21 15:02 85 100 02/13/21 14:57 92 H 100 02/13/21 14:52 72 100 02/13/21 14:47 70 100 02/13/21 14:42 83 100 02/13/21 14:41 71 92 02/13/21 14:37 67 100 02/13/21 14:32 71 99 02/13/21 14:27 60 100 02/13/21 13:32 65 136/78 02/13/21 12:20 76 129/66 02/13/21 11:21 61 142/78 H 02/13/21 10:19 37.3 C 70 18 130/75 02/13/21 07:17 37.3 C 77 22 131/70 02/13/21 03:09 36.9 C 74 16 142/65 H Pain Intensity Lower Abdomen: Pain Intensity: 3 Transfer of Care Handoff Completed per policy Notes Mental Status: alert / awake / arousable and participated in evaluation Patient Amnestic to Procedure: Yes Nausea / Vomiting: adequately controlled Pain: adequately controlled Airway Patency, RR, SpO2: stable & adequate BP & HR: stable & adequate Hydration State: stable & adequate Neuraxial Anesthesia: was administered and sensory block is resolving Anesthetic Complications: no major complications apparent and Pt Satisfied with anesthetic care
[2021-02-14] MEDS: OXYTOCIN 20 UNITS in LACTATED RINGER'S 1,000 ML IV SCH ×2 (01:33→10:08)
[2021-02-14] MEDS ORDERED: CITRIC ACID/SODIUM CITRATE 15 ML UDC PO SCH (06:00)
[2021-02-14] MEDS: cephALEXin 500 MG CAP PO SCH ×4 (06:06→23:59)
[2021-02-14] MEDS: metroNIDAZOLE 500 MG TAB PO SCH ×3 (06:07→22:12)
[2021-02-14 06:50] LABS: Basophils # (auto) 0.01 K/uL (0-0.2); Basophils % (auto) 0.1 %; Eosinophils # (auto) 0.04 K/uL (0-0.5); Eosinophils % (auto) 0.3 %; Hematocrit (blood only) 32.8 % (37-47); Hemoglobin 10.7 g/dL (12.0-16.0); Immature Granulocytes # (auto) 0.06 K/uL (0.00-0.02); Immature Granulocytes % (auto) 0.5 %; Lymphocytes # (auto) 1.52 K/uL (1.2-3.4); Lymphocytes % (auto) 12.5 %; Mean Corpuscular Hgb Conc 32.6 g/dL (32-36); Mean Corpuscular Volume 82.6 fL (80-100); Mean Platelet Volume 10.4 fL (7.4-10.4); Monocytes # (auto) 0.68 K/uL (0.11-0.59); Monocytes % (auto) 5.6 %; Neutrophils # (auto) 9.89 K/uL (1.4-6.5); Platelet Count 212 K/uL (130-400); RDW Standard Deviation 48.4 fL (36.4-46.3); Red Blood Count 3.97 M/uL (4.2-5.4)
[2021-02-14 06:56] LABS: Prothrombin Time 9.8 Seconds (9.0-12.0)
--- NOTE | 2021-02-14 08:23 | Obstetrical Progress Note ---
Date of Service February 14, 2021 Assessment & Plan Admission and Anticipated Discharge Date Admission Date: February 12, 2021 Subjective Postop check Patient is seen and examined Feels well, no complaints Pain is under control with meds No CP/ SOB/ Dizziness/ N&V/ VB/ Leg pain Not OOB yet Tolerating clears Feels hungry and likes to eat Explained about the surgery and findings Vital Signs Temp Pulse Pulse Resp BP BP Pulse Ox 02/14/21 07:33 36.9 C 73 16 99/68 L 02/14/21 06:15 18 95 02/14/21 05:30 16 94 02/14/21 04:27 18 95 02/14/21 03:30 18 95 02/14/21 02:50 37.0 C 87 16 117/72 95 02/14/21 01:50 36.9 C 77 18 112/72 94 02/14/21 01:36 36.9 C 18 02/14/21 01:35 75 129/72 02/14/21 01:31 92 H 94 02/14/21 01:26 85 95 02/14/21 01:25 78 131/69 02/14/21 01:21 88 96 02/14/21 01:16 92 H 97 02/14/21 01:15 81 128/71 02/14/21 01:11 86 97 02/14/21 01:06 84 16 99 02/14/21 01:05 95 H 141/89 H 02/14/21 01:01 82 99 02/14/21 00:56 88 139/88 100 02/14/21 00:51 90 100 02/14/21 00:46 82 100 02/14/21 00:45 80 125/71 02/14/21 00:41 90 99 02/14/21 00:37 80 126/67 02/14/21 00:36 84 16 84/49 L 97 02/14/21 00:31 86 98 02/14/21 00:26 94 H 18 139/69 96 02/14/21 00:21 83 98 02/14/21 00:16 90 18 161/64 H 98 02/14/21 00:11 91 H 100 02/14/21 00:06 95 H 18 141/66 H 100 02/14/21 00:01 105 H 93 02/13/21 23:57 91 H 91 02/13/21 23:56 74 18 142/71 H 99 02/13/21 23:51 84 99 02/13/21 23:46 106 H 16 105/70 99 02/13/21 23:43 92 H 87 L 02/13/21 23:41 83 98 02/13/21 23:36 37.1 C 87 16 100/70 100 02/13/21 21:57 91 H 93 02/13/21 21:53 76 152/89 H 02/13/21 21:52 72 98 02/13/21 21:47 69 98 02/13/21 21:42 74 98 02/13/21 21:38 68 144/86 H 02/13/21 21:37 87 97 02/13/21 21:32 77 98 02/13/21 21:30 18 02/13/21 21:27 81 98 02/13/21 21:23 72 135/80 02/13/21 21:22 74 98 02/13/21 21:17 80 95 02/13/21 21:12 75 95 02/13/21 21:08 88 127/78 02/13/21 21:07 95 H 96 02/13/21 21:02 85 96 02/13/21 21:00 36.9 C 18 02/13/21 20:57 75 96 02/13/21 20:53 77 123/66 02/13/21 20:52 79 96 02/13/21 20:47 70 98 02/13/21 20:42 65 96 02/13/21 20:38 71 126/73 02/13/21 20:37 66 98 02/13/21 20:32 94 H 100 02/13/21 20:30 18 02/13/21 20:27 76 100 02/13/21 20:23 70 126/71 02/13/21 20:22 70 100 Lab Results 02/12/21 02/12/21 02/12/21 Range/Units 08:21 08:21 09:16 WBC (4.8-10.8) K/uL RBC (4.2-5.4) M/uL Hgb (12.0-16.0) g/dL Hct (37-47) % MCV (80-100) fL MCH (25-34) pg MCHC (32-36) g/dL RDW Std Deviation (36.4-46.3) fL RDW Coeff of Hillary (11.5-14.5) % Plt Count (130-400) K/uL MPV (7.4-10.4) fL Immature Gran % (Auto) % Neut % (Auto) % Lymph % (Auto) % Faulk % (Auto) % Eos % (Auto) % Baso % (Auto) % Neut # (Auto) (1.4-6.5) K/uL Lymph # (Auto) (1.2-3.4) K/uL Faulk # (Auto) (0.11-0.59) K/uL Eos # (Auto) (0-0.5) K/uL Baso # (Auto) (0-0.2) K/uL Immature Gran # (Auto) (0.00-0.02) K/uL PT (9.0-12.0) Seconds INR (0.9-1.1) Sodium (136-145) mmol/L Potassium (3.5-5.1) mmol/L Chloride (98-107) mmol/L Carbon Dioxide (21-32) mmol/L Anion Gap (3-11) BUN (7-18) mg/dl Creatinine (0.6-1.2) mg/dl Est Cr Clr Drug Dosing ml/min Est GFR ( Amer) Est GFR (Non-Af Amer) BUN/Creatinine Ratio (10-20) Glucose (70-99) mg/dl Calcium (8.5-10.1) mg/dl Total Bilirubin (0.2-1) mg/dl AST (15-37) U/L ALT (12-78) U/L Alkaline Phosphatase (45-117) U/L Total Protein (6.4-8.2) gm/dl Albumin (3.4-5.0) gm/dl Globulin (2.5-4.0) gm/dl Albumin/Globulin Ratio (0.9-2) COVID-19 Eval Order Covid19 [facility] SARS-CoV-2, RNA, NAAT NEGATIVE (NEGATIVE) Blood Type O Positive Antibody Screen NEGATIVE 02/12/21 02/12/21 02/14/21 Range/Units 09:16 09:16 06:20 WBC 8.78 12.20 H (4.8-10.8) K/uL RBC 4.55 3.97 L (4.2-5.4) M/uL Hgb 12.3 10.7 L (12.0-16.0) g/dL Hct 37.7 32.8 L (37-47) % MCV 82.9 82.6 (80-100) fL MCH 27.0 27.0 (25-34) pg MCHC 32.6 32.6 (32-36) g/dL RDW Std Deviation 48.1 H 48.4 H (36.4-46.3) fL RDW Coeff of Hillary 16.2 H 16.0 H (11.5-14.5) % Plt Count 240 212 (130-400) K/uL MPV 10.2 10.4 (7.4-10.4) fL Immature Gran % (Auto) 0.5 % Neut % (Auto) 81.0 % Lymph % (Auto) 12.5 % Faulk % (Auto) 5.6 % Eos % (Auto) 0.3 % Baso % (Auto) 0.1 % Neut # (Auto) 9.89 H (1.4-6.5) K/uL Lymph # (Auto) 1.52 (1.2-3.4) K/uL Faulk # (Auto) 0.68 H (0.11-0.59) K/uL Eos # (Auto) 0.04 (0-0.5) K/uL Baso # (Auto) 0.01 (0-0.2) K/uL Immature Gran # (Auto) 0.06 H (0.00-0.02) K/uL PT (9.0-12.0) Seconds INR (0.9-1.1) Sodium 136 (136-145) mmol/L Potassium 3.7 (3.5-5.1) mmol/L Chloride 107 (98-107) mmol/L Carbon Dioxide 23 (21-32) mmol/L Anion Gap 6.0 (3-11) BUN 9 (7-18) mg/dl Creatinine 0.61 (0.6-1.2) mg/dl Est Cr Clr Drug Dosing 179.8 ml/min Est GFR ( Amer) 143.0 Est GFR (Non-Af Amer) 123.4 BUN/Creatinine Ratio 15.0 (10-20) Glucose 76 (70-99) mg/dl Calcium 8.4 L (8.5-10.1) mg/dl Total Bilirubin 0.3 (0.2-1) mg/dl AST 13 L (15-37) U/L ALT 14 (12-78) U/L Alkaline Phosphatase 105 (45-117) U/L Total Protein 7.4 (6.4-8.2) gm/dl Albumin 2.4 L (3.4-5.0) gm/dl Globulin 5.0 H (2.5-4.0) gm/dl Albumin/Globulin Ratio 0.5 L (0.9-2) COVID-19 Eval Order SARS-CoV-2, RNA, NAAT (NEGATIVE) Blood Type Antibody Screen 02/14/21 Range/Units 06:20 WBC (4.8-10.8) K/uL RBC (4.2-5.4) M/uL Hgb (12.0-16.0) g/dL Hct (37-47) % MCV (80-100) fL MCH (25-34) pg MCHC (32-36) g/dL RDW Std Deviation (36.4-46.3) fL RDW Coeff of Hillary (11.5-14.5) % Plt Count (130-400) K/uL MPV (7.4-10.4) fL Immature Gran % (Auto) % Neut % (Auto) % Lymph % (Auto) % Faulk % (Auto) % Eos % (Auto) % Baso % (Auto) % Neut # (Auto) (1.4-6.5) K/uL Lymph # (Auto) (1.2-3.4) K/uL Faulk # (Auto) (0.11-0.59) K/uL Eos # (Auto) (0-0.5) K/uL Baso # (Auto) (0-0.2) K/uL Immature Gran # (Auto) (0.00-0.02) K/uL PT 9.8 (9.0-12.0) Seconds INR 1.0 (0.9-1.1) Sodium (136-145) mmol/L Potassium (3.5-5.1) mmol/L Chloride (98-107) mmol/L Carbon Dioxide (21-32) mmol/L Anion Gap (3-11) BUN (7-18) mg/dl Creatinine (0.6-1.2) mg/dl Est Cr Clr Drug Dosing ml/min Est GFR ( Amer) Est GFR (Non-Af Amer) BUN/Creatinine Ratio (10-20) Glucose (70-99) mg/dl Calcium (8.5-10.1) mg/dl Total Bilirubin (0.2-1) mg/dl AST (15-37) U/L ALT (12-78) U/L Alkaline Phosphatase (45-117) U/L Total Protein (6.4-8.2) gm/dl Albumin (3.4-5.0) gm/dl Globulin (2.5-4.0) gm/dl Albumin/Globulin Ratio (0.9-2) COVID-19 Eval Order SARS-CoV-2, RNA, NAAT (NEGATIVE) Blood Type Antibody Screen PE: General: Alert, orientedx3, NAD CVS: S1S2 RRR Lungs: CTAB Abd: soft, NT, ND, BS+, Dressing dry No VB Ext: NT, no edema, SCD's on AP: 30 yo female s/p Primary Csection , pod#1 VSS Afebrile doing well Continue to routine postop care Encourage PO intake, ambulate D/C martinez Results & Data ([facility]) Vital Signs (Past 12 Hours) Vital Signs Temp Pulse Pulse Resp BP BP Pulse Ox 02/14/21 07:33 36.9 C 73 16 99/68 L 02/14/21 06:15 18 95 02/14/21 05:30 16 94 02/14/21 04:27 18 95 02/14/21 03:30 18 95 02/14/21 02:50 37.0 C 87 16 117/72 95 02/14/21 01:50 36.9 C 77 18 112/72 94 02/14/21 01:36 36.9 C 18 02/14/21 01:35 75 129/72 02/14/21 01:31 92 H 94 02/14/21 01:26 85 95 02/14/21 01:25 78 131/69 02/14/21 01:21 88 96 02/14/21 01:16 92 H 97 02/14/21 01:15 81 128/71 02/14/21 01:11 86 97 02/14/21 01:06 84 16 99 02/14/21 01:05 95 H 141/89 H 02/14/21 01:01 82 99 02/14/21 00:56 88 139/88 100 02/14/21 00:51 90 100 02/14/21 00:46 82 100 02/14/21 00:45 80 125/71 02/14/21 00:41 90 99 02/14/21 00:37 80 126/67 02/14/21 00:36 84 16 84/49 L 97 02/14/21 00:31 86 98 02/14/21 00:26 94 H 18 139/69 96 02/14/21 00:21 83 98 02/14/21 00:16 90 18 161/64 H 98 02/14/21 00:11 91 H 100 02/14/21 00:06 95 H 18 141/66 H 100 02/14/21 00:01 105 H 93 02/13/21 23:57 91 H 91 02/13/21 23:56 74 18 142/71 H 99 02/13/21 23:51 84 99 02/13/21 23:46 106 H 16 105/70 99 02/13/21 23:43 92 H 87 L 02/13/21 23:41 83 98 02/13/21 23:36 37.1 C 87 16 100/70 100 02/13/21 21:57 91 H 93 02/13/21 21:53 76 152/89 H 02/13/21 21:52 72 98 02/13/21 21:47 69 98 02/13/21 21:42 74 98 02/13/21 21:38 68 144/86 H 02/13/21 21:37 87 97 02/13/21 21:32 77 98 02/13/21 21:30 18 02/13/21 21:27 81 98 02/13/21 21:23 72 135/80 02/13/21 21:22 74 98 02/13/21 21:17 80 95 02/13/21 21:12 75 95 02/13/21 21:08 88 127/78 02/13/21 21:07 95 H 96 02/13/21 21:02 85 96 02/13/21 21:00 36.9 C 18 02/13/21 20:57 75 96 02/13/21 20:53 77 123/66 02/13/21 20:52 79 96 02/13/21 20:47 70 98 02/13/21 20:42 65 96 02/13/21 20:38 71 126/73 02/13/21 20:37 66 98 02/13/21 20:32 94 H 100 02/13/21 20:30 18 02/13/21 20:27 76 100 02/13/21 20:23 70 126/71 02/13/21 20:22 70 100
[2021-02-14] MEDS: FERROUS SULFATE 325 MG TAB PO SCH (10:03)
[2021-02-14] MEDS: PRENATAL VITAMIN 1 TAB PO SCH (10:03)
[2021-02-14] MEDS: SIMETHICONE 80 MG CHEW PO SCH ×3 (10:03→20:30)
[2021-02-14] MEDS: DOCUSATE SODIUM 100 MG CAP PO SCH ×2 (10:04→20:30)
[2021-02-14] MEDS: ENOXAPARIN INJ 40 MG/0.4 ML SYR SQ SCH (10:04)
--- NOTE | 2021-02-14 14:30 | Operative Report (OR) ---
DATE OF OPERATION: 02/13/2021 PREOPERATIVE DIAGNOSES: The patient is a 30-year-old G1, P0 at 39 weeks and 6 days of gestation, admitted for induction of labor at term due to class 3 obesity, chronic hypertension, and GBS positive, arrest of dilatation in active phase of labor despite adequate uterine contractions, which were documented with intrauterine pressure catheter. POSTOPERATIVE DIAGNOSES: The patient is a 30-year-old G1, P0 at 39 weeks and 6 days of gestation, admitted for induction of labor at term due to class 3 obesity, chronic hypertension, and GBS positive, arrest of dilatation in active phase of labor despite adequate uterine contractions, which were documented with intrauterine pressure catheter. PROCEDURE: Primary low transverse with Pfannenstiel skin incision. SURGEON: Aneesh Valencia MD. OLAP DEVELOPER: Marcell Clayton MD. ESTIMATED BLOOD LOSS: 600 mL. DRAINS: Pickering catheter drained 400 mL of clear urine. ANESTHESIA: Labor epidural, Dr. Urbina. FLUIDS: 1500 mL of lactated Ringer. COMPLICATIONS: None. FINDINGS: Baby was a viable female delivered at 22:31 p.m. in cephalic presentation, Apgars were 8/9, weight was 2890 grams. MATERNAL FINDINGS: Normal uterus, fallopian tubes and ovaries. DESCRIPTION OF PROCEDURE: The patient was taken to the operating room where epidural anesthesia was found to be adequate. She was placed in dorsal supine position with a leftward tilt. She was prepared and draped in usual sterile fashion. Pfannenstiel skin incision was made and carried through to the underlying fascia with the Bovie. Fascia was incised in the midline and incision was extended laterally with the help of Aguero scissors. Upper aspect of the fascial incision was then grasped with 2 Pietro clamps, elevated, underlying rectus muscles were dissected off sharply and bluntly with Aguero scissors and fingers respectively and then lower aspect of the fascial incision was grasped with 2 Pietro clamps, elevated, underlying rectus muscles were dissected off bluntly with fingers. Rectus muscles were in the midline. Peritoneum was identified, entered bluntly with fingers. Peritoneal incision was extended superiorly and inferiorly with good visualization of the bladder and then Jose Ramon abdominal retractor was placed and then it was used to retract the abdominal wall. The vesicouterine peritoneum was identified, grasped with pickups, entered sharply with Metzenbaum scissors. Bladder flap was created digitally and bladder blade was reinserted. Lower uterine segment was incised in transverse fashion, incision was extended laterally with the help of fingers. Membranes were ruptured. Clear fluid was obtained. Baby's head was delivered without difficulty. Shoulders were delivered with minimal traction. Mouth and nose were suctioned. Cord was clamped x2 and cut at 1 minute delay. Baby was handed to the waiting pediatric team and then placenta was delivered manually as intact and complete. Uterus was exteriorized, cleared of all clots and debris. Fundus was massaged and IV Pitocin was started. Uterine incision was repaired with 0 Vicryl in a running locked fashion and a second imbricating layer was placed with another 0 Vicryl in a running locked fashion. Excellent hemostasis was achieved. Cul-de-sac was irrigated with warm normal saline and suctioned. Uterus was returned to the abdomen. The pelvis was irrigated with warm normal saline and suctioned. Incision was hemostatic. Vesicouterine peritoneum was reapproximated with 3-0 Vicryl in a running fashion. Excellent hemostasis was achieved. Then parietal peritoneum was reapproximated with 3-0 Vicryl in a running fashion. Rectus muscles were also closed together with the same suture in a running fashion. The rectus fascia and muscles were hemostatic. Then rectus fascia was reapproximated with #1 Vicryl in a running fashion starting from both corners meeting in the midline. The subcuticular fat tissue was reapproximated with 2-0 plain catgut on XLH needle and then skin was closed with 4-0 Monocryl in a subcuticular fashion. The incision was covered with a WALTER dressing to provide suction. The patient tolerated the procedure well. Sponge, lap, needle count was correct x3. She was given 3 grams of cefazolin before surgery and 500 mg of azithromycin during surgery. She was taken to recovery room in stable condition. No complications happened and I was and Dr Clayton was present during whole procedure. My Freight Loader was needed for retraction, visualization and assistance during delivery of and operation. I attest to the content of the Intraoperative Record and any orders documented therein. Any exceptions are noted below. RADHA
[2021-02-14] MEDS ORDERED: oxyCODONE/ACETAMINOPHEN 5mg/325mg TAB PO PRN (16:51)
[2021-02-14] MEDS ORDERED: MEPERIDINE HCL 50 MG/ML CARP IV PRN (16:51)
[2021-02-14] MEDS ORDERED: diphenhydrAMINE Capsule 25 MG CAP PO PRN (16:51)
[2021-02-14] MEDS ORDERED: diphenhydrAMINE 50 MG/ML VIAL IV PRN (16:51)
[2021-02-14] MEDS ORDERED: ONDANSETRON INJ 2 MG/ML 2 ML VIAL IV PRN (16:51)
[2021-02-14] MEDS ORDERED: PROMETHAZINE HCL 25 MG in SODIUM CHLORIDE 0.9% 50 ML IV PRN (16:51)
[2021-02-14] MEDS ORDERED: KETOROLAC 30 MG/ML VIAL IV PRN (16:51)
[2021-02-14] MEDS ORDERED: bisacodyL 5 MG TABEC PO SCH (20:00)
[2021-02-15 06:22] LABS: Hematocrit (blood only) 32.9 % (37-47); Hemoglobin 10.8 g/dL (12.0-16.0)
[2021-02-15] MEDS: metroNIDAZOLE 500 MG TAB PO SCH ×3 (06:54→21:49)
[2021-02-15] MEDS: cephALEXin 500 MG CAP PO SCH ×3 (06:54→17:51)
[2021-02-15] MEDS: SIMETHICONE 80 MG CHEW PO SCH ×4 (07:32→21:49)
[2021-02-15] MEDS: PRENATAL VITAMIN 1 TAB PO SCH (07:32)
[2021-02-15] MEDS: DOCUSATE SODIUM 100 MG CAP PO SCH ×2 (07:32→21:50)
[2021-02-15] MEDS: FERROUS SULFATE 325 MG TAB PO SCH (07:32)
--- NOTE | 2021-02-15 09:50 | Obstetrical Progress Note ---
Date of Service February 15, 2021 Assessment & Plan (1) delivery delivered: c/sec day #1 pt doing well no complaints anticipate disch tomorrow Results & Data ([facility]) Vital Signs (Past 12 Hours) Vital Signs Temp Pulse Resp BP Pulse Ox 02/15/21 07:00 36.6 C 90 18 120/80 97 02/14/21 23:50 36.8 C 83 20 124/81 98
[2021-02-15] MEDS: ENOXAPARIN INJ 40 MG/0.4 ML SYR SQ SCH (09:59)
[2021-02-15] MEDS ORDERED: ADVANCED PROBIOTIC 1250 MG CAPSULE PO SCH (16:15)
[2021-02-15] MEDS ORDERED: bisacodyL 10 MG SUPP PR PRN (23:22)
[2021-02-16] MEDS: DOCUSATE SODIUM 100 MG CAP PO SCH ×2 (07:48→08:19)
[2021-02-16] MEDS: PRENATAL VITAMIN 1 TAB PO SCH (07:48)
[2021-02-16] MEDS: SIMETHICONE 80 MG CHEW PO SCH (07:48)
[2021-02-16] MEDS: metroNIDAZOLE 500 MG TAB PO SCH (07:49)
[2021-02-16] MEDS: cephALEXin 500 MG CAP PO SCH (07:49)
[2021-02-16] MEDS: FERROUS SULFATE 325 MG TAB PO SCH (07:49)
--- NOTE | 2021-02-16 08:18 | Surgery Progress Note ---
Date of Service February 16, 2021 Assessment & Plan Admission and Anticipated Discharge Date Admission Date: February 12, 2021 Subjective POD#2 stable doing well Physical Exam Constitutional: WD/WN, vitals as above comfortable abdomen soft and non- tender incision c/d/i no edema neg Nargis's for d/c Results & Data ([facility]) Vital Signs (Past 12 Hours) Vital Signs Temp Pulse Resp BP 02/16/21 00:15 36.7 C 90 18 114/71 Laboratory Results Laboratory Results - last 72 hr 02/12/21 02/14/21 02/14/21 09:16 06:20 06:20 WBC 12.20 H RBC 3.97 L Hgb 10.7 L Hct 32.8 L MCV 82.6 MCH 27.0 MCHC 32.6 RDW Std Deviation 48.4 H RDW Coeff of Hillary 16.0 H Plt Count 212 MPV 10.4 Immature Gran % (Auto) 0.5 Neut % (Auto) 81.0 Lymph % (Auto) 12.5 Latimer % (Auto) 5.6 Eos % (Auto) 0.3 Baso % (Auto) 0.1 Neut # (Auto) 9.89 H Lymph # (Auto) 1.52 Latimer # (Auto) 0.68 H Eos # (Auto) 0.04 Baso # (Auto) 0.01 Immature Gran # (Auto) 0.06 H PT 9.8 INR 1.0 Blood Type O Positive Antibody Screen NEGATIVE 02/15/21 06:11 WBC RBC Hgb 10.8 L Hct 32.9 L MCV MCH MCHC RDW Std Deviation RDW Coeff of Hillary Plt Count MPV Immature Gran % (Auto) Neut % (Auto) Lymph % (Auto) Latimer % (Auto) Eos % (Auto) Baso % (Auto) Neut # (Auto) Lymph # (Auto) Latimer # (Auto) Eos # (Auto) Baso # (Auto) Immature Gran # (Auto) PT INR Blood Type Antibody Screen
--- NOTE | 2021-02-24 07:56 | Discharge Summary (DS) ---
DETAILS OF ADMISSION: The patient is a 30-year-old G1, P0 at 39 weeks and 5 days of gestation, who was admitted on 02/12/2021 for scheduled induction of labor at term due to class 3 obesity, history of chronic hypertension, not on meds. GBS positive. She has received Pickering balloon on the day of admission with IV Pitocin and then balloon came out and she was placed on Cervidil for cervical ripening. On 02/13/2021 when I came in the morning, her Cervidil came out by itself and her cervix was 3 cm dilated, 50% effaced, the head was at -2 station. She was AROMed with clear fluid obtained. heart rate was reassuring. Then her contractions were irregular; IV Pitocin was started to augment the contractions and she was continued on IV penicillin for GBS. In the afternoon of 02/13/2021, the patient was reevaluated. Her cervix was unchanged 3-4 cm, 50%, -2. Contractions were every 2-5 minutes. Pitocin has continued to increase. She was checked again in the afternoon. There was no change in her cervix. She received epidural and she was resting and relaxing. At 5:00 p.m., her cervix was unchanged. IUPC was placed to monitor contractions directly and the head was becoming cone shaped. She was checked again at 7:30 p.m. and her cervix was 4 cm, 60%, -2. Again, cone head was noted. Contractions were regular and adequate as documented by IUPC. Discussed the findings and after discussion of pros and cons of primary versus expectant management, she wanted to wait another 2 hours. She was checked again at 9:30 p.m. on 02/13/2021. Cervix was unchanged, but head was becoming more cone shaped and decision was made to proceed with primary . She understood the risks and signed informed consent. Her surgery was uncomplicated. She delivered a viable female at 2231 hours. Apgars were 8/9. See dictated op note for details. On postop day #1, the patient was doing well, vital signs stable, afebrile. Urine output was adequate. She was tolerating clears and she wanted to proceed to a regular diet. Her H and H was 10.7/32.8. On postop day #2, the patient was doing well, vital signs stable, afebrile. Physical exam was unremarkable. On postoperative day #3, the patient was doing well, vital signs stable, afebrile. WALTER Dressing had been clean, dry and intact. No edema. Abdomen was soft, nontender, nondistended. Her repeat H and H was 10.8/32.9. Discharge instructions were given when to call, prescriptions were written for pain. She is to be seen in office in a week. All questions were answered. RADHA
== END 2021-02-16 11:45 | disposition home or self-care (01) | DRG 788 ==
LOC: 4S1 07:34 → 4S2 20:50 → 4S1 21:13 → 4S2 02-14 01:50

== ENCOUNTER 2022-12-14 05:11 | Inpatient (IN) ==
--- NOTE | 2022-12-08 11:50 | Anesthesiology Consultation ---
Date of Service December 08, 2022 Assessment & Plan (1) Encounter for pre-operative examination: - COVID screening: Per manager assessment on 12/08/2022: Travel screen negative, no known COVID-19 positive contacts or current COVID-19 related symptoms in past 2 weeks. To surgeon's office if preop COVID testing is needed DOS. Chart Review Chart Review: Acceptable Risk for Surgery and Patient NOT seen in Pre Admission Testing History Surgery Operation Date: 12/14/22 07:30 Proposed Procedures p Repeat Section - Amanda Avila MD, PhD s with Bilateral Tubal Ligation - Amanda Avila MD, PhD Height/Weight Height: 5 ft 1 in Weight: 136.078 kg Allergies Allergy/AdvReac Type Severity Reaction Status Date / Time nickel Allergy Mild Rash (with Verified 12/08/22 11:19 jewelry) Sulfa (Sulfonamide Allergy Mild Rash Verified 12/08/22 11:19 Antibiotics) NSAIDS (Non-Steroidal AdvReac Mild Aviods due Verified 12/08/22 11:19 Anti-Inflamma to "platelet disorder" Medications Home Medications Medication Instructions Recorded Confirmed Last Taken ferrous sulfate 325 mg (65 mg 325 mg PO BID 12/08/22 12/08/22 Unknown iron) tablet Past Medical History Medical History (Updated 12/08/22 @ 11:49 by Rhonda Velez PA-C) Abnormal platelet aggregation Per [facility] hematology note (08/05/21): "She had conflicting results of the platelet studies in the past. Most likely she does not have any underlying platelet abnormality." will see [facility] on 12/12/22 Anxiety Asthma Controlled- sports related, no inhaler Hx of chlamydia infection Hx of trichomoniasis Morbid obesity with BMI of 45.0-49.9, adult Past Family History Family History Mother Crohn's disease Father Lung cancer Past Surgical History Surgical History (Updated 12/08/22 @ 11:49 by Rhonda Velez PA-C) H/O section epidural History of ankle surgery Left ankle ORIF 10/27/17 Grade 1 view, MAC 3, ETT 7 + PNB. Reverse L ankle syndesmosis 02/28/18 MAC. Hardware removal 12/04/19 LMA#4 + PNB. History of hand surgery Left hand- two fingers ORIF History of tonsillectomy and adenoidectomy History of wisdom tooth extraction Hx laparoscopic cholecystectomy (08/18/21) Robotic Assisted Laparoscopic Cholecystectomy Dr. Alford 08/18/2021 Grade 1 view, MAC 3, ETT 7.5. Slow to wake up after anesthesia + nausea Social History Smoking Status: Never smoker Do You Dip or Chew Tobacco: No Hx Alcohol Use: No Hx Substance Use: No substance use type: does not use Testing Other Testing Neck CTA 01/11/19 1. No evidence of acute arterial injury of the right vertebral artery as it courses immediately adjacent to the left pedicle fracture of C2. No stenosis, vessel occlusion, or dissection is apparent. 2. 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 This be better demonstrated with MRI.
[2022-12-14] MEDS ORDERED: LACTATED RINGER'S 1,000 ML IV SCH ×2 (05:15→09:00)
[2022-12-14] MEDS ORDERED: CITRIC ACID/SODIUM CITRATE 15 ML UDC PO SCH (06:00)
[2022-12-14] MEDS ORDERED: SODIUM CHLORIDE 0.9% 250 ML IV PRN (06:37)
[2022-12-14 07:11] LABS: Basophils # (auto) 0.03 K/uL (0-0.2); Basophils % (auto) 0.4 %; Eosinophils # (auto) 0.06 K/uL (0-0.50); Eosinophils % (auto) 0.8 %; Hematocrit (blood only) 34.7 % (37.0-47.0); Hemoglobin 11.4 g/dl (12.0-16.0); Immature Granulocytes # (auto) 0.04 K/uL (0.01-0.20); Immature Granulocytes % (auto) 0.5 %; Lymphocytes # (auto) 1.62 K/uL (1.2-3.4); Lymphocytes % (auto) 22.1 %; Mean Corpuscular Hgb Conc 32.9 g/dL (32.0-36.0); Mean Corpuscular Volume 85.3 fL (80.0-100.0); Mean Platelet Volume 10.3 fL (9.4-12.4); Monocytes % (auto) 5.5 %; Neutrophils # (auto) 5.17 K/uL (1.40-6.50); Neutrophils % (auto) 70.7 %; Platelet Count 177 K/uL (130-400); RDW Coefficient of Variation 14.8 % (11.5-14.5); RDW Standard Deviation 45.6 fL (36.4-46.3); Red Blood Count 4.07 M/uL (4.20-5.40); White Blood Count 7.32 K/ul (4.8-10.8)
[2022-12-14] MEDS ORDERED: ePHEDrine sulfate 50 MG/ML AMP IV PRN (07:35)
[2022-12-14] MEDS ORDERED: MoRPHine SULFATE 2 MG/ML CARP IV PRN (07:35)
[2022-12-14] MEDS ORDERED: ONDANSETRON INJ 2 MG/ML 2 ML VIAL IV PRN (07:35)
[2022-12-14] MEDS ORDERED: LACTATED RINGER'S 500 ML IV PRN (07:35)
[2022-12-14] MEDS ORDERED: MEPERIDINE HCL 25 MG/ML CARP/VIAL IV PRN (07:35)
[2022-12-14] MEDS ORDERED: diphenhydrAMINE 50 MG/ML VIAL IV PRN (07:35)
[2022-12-14] MEDS ORDERED: NALOXONE HCL 0.08 MG in SYRINGE 1.8 ML IV PRN (07:35)
[2022-12-14] MEDS ORDERED: NALOXONE HCL 1 MG in SODIUM CHLORIDE 0.9% 1000ML 1,000 ML IV PRN (07:35)
[2022-12-14] MEDS ORDERED: NALBUPHINE HCL INJ 10 MG/ML AMP IV PRN (07:35)
[2022-12-14] MEDS ORDERED: MoRPHine SULFATE PF 1 MG/ML 10 ML AMP/VIAL INT SPINAL ONE (07:35)
[2022-12-14] MEDS ORDERED: NALOXONE HCL 0.4 MG/1 ML VIAL/CARP IV PRN (07:35)
[2022-12-14] MEDS ORDERED: HYDROmorphone INJ 0.5 MG/0.5 ML SYR IV PRN (07:35)
[2022-12-14] MEDS ORDERED: METOCLOPRAMIDE HCL 20 MG in SODIUM CHLORIDE 0.9% 50 ML IV PRN (07:35)
[2022-12-14] MEDS ORDERED: PROMETHAZINE HCL 25 MG in SODIUM CHLORIDE 0.9% 50 ML IV PRN (07:35)
--- NOTE | 2022-12-14 07:35 | History & Physical Bridge Note ---
Date of Service December 14, 2022 History & Physical Bridge Note I have examined the patient, reviewed the History & Physical and in the interval since the performance of the History & Physical I have noted the following changes of clinical significance: New consents for repeat delivery with bilateral dural salpingectomy were signed by the patient and myself in the room heart tracing Baseline 130, moderate variability, positive accelerations no decelerations, category 1 tracing Tocometer: No contractions seen
[2022-12-14] MEDS ORDERED: MoRPHine SULFATE PF 1 MG/ML 10 ML AMP/VIAL ONE (07:40)
[2022-12-14] MEDS ORDERED: NO NARCOTICS OR SEDATIVES SCH (07:45)
[2022-12-14] MEDS ORDERED: SODIUM CHLORIDE 0.9% 1000ML 1,000 ML IV SCH (07:45)
[2022-12-14] MEDS ORDERED: DC INTRASPINAL MORPHINE SCH (07:45)
[2022-12-14] MEDS ORDERED: OXYTOCIN 10 UNITS/ML 10ML VIAL ONE (08:36)
[2022-12-14] MEDS ORDERED: PHENYLEPHRINE 100MCG/ML 5ML SYR ONE (08:36)
[2022-12-14] MEDS ORDERED: ePHEDrine sulfate 50 MG/ML SYR ONE (08:36)
[2022-12-14] MEDS ORDERED: METHYLERGONOVINE MALEATE 0.2 MG/ML AMP ONE (08:36)
[2022-12-14] MEDS ORDERED: SENNA 8.6 MG TAB PO PRN (08:52)
[2022-12-14] MEDS ORDERED: BENZOCAINE 20% AER SPR 82.5 GM CAN EXT PRN (08:52)
[2022-12-14] MEDS ORDERED: DIPHTHERIA/TETANUS/PERTUSSIS 0.5mL SYR/VIAL (Age 7+yrs) IM ONE (08:52)
[2022-12-14] MEDS ORDERED: HYDROCORTISONE ACETATE 25 MG SUPP PR PRN (08:52)
[2022-12-14] MEDS ORDERED: MAGNESIUM HYDROXIDE SUSP 30 ML UDC PO PRN (08:52)
--- NOTE | 2022-12-14 08:54 | Discharge Summary ---
Date of Service December 14, 2022 Discharge Data Consultations 12/14/22 05:14 Consult Anesthesiology Stat Procedures Performed Operation Date: 12/14/22 07:30 Actual Procedures p Repeat Section; Delivery of live male child at 0816. - Amanda Avila MD, PhD s with Bilateral Tubal Ligation(Bilateral) - Amanda Avila MD, PhD
--- NOTE | 2022-12-14 09:01 | Operative Report ---
Post Operative Report Pre & Post Diagnosis Operation Date: 12/14/22 07:30 Pre-Op Diagnosis: Sterilization, Prior Post-Op Diagnosis: Same with delivery of live male child I identified the patient and participated in the time-out.: Yes Procedure Operation Date: 12/14/22 07:30 Actual Procedures p Repeat Section; Delivery of live male child at 0816. - Amanda Avila MD, PhD s with Bilateral salpingectomy (Bilateral) - Amanda Avila MD, PhD Surgeon Amanda Avila MD, PhD Linseed Oil Press Tender Dr Kirit NÚÑEZ Estimated Blood Loss 800 Findings Consistent with Post-Op Diagnosis Liveborn male delivered at 0816 hrs. with nuchal cord x1, thick meconium, Apgars 8/9. Intact placenta with three-vessel cord. Cord pH not obtained. Baby weight pending Fluids 1200 mL Specimens Placenta, left and right fallopian tube Drains Pick[place] Anesthesia Type Spinal Complications None Disposition Accompanied Patient To Recovery: No Indications Desires repeat elective delivery and sterilization procedure Description of Procedure Procedure Summary: section was recommended. Risks, benefits and alternatives were discussed including but not limited to infection, bleeding that may require blood products or hysterectomy for life saving measures, injury to surrounding organs including but not limited to bowel, bladder, ureters, tubes and ovaries and/or the baby. Should injury occur it could require longer/additional surgery to repair. Patient was also counselled about risk of DVT/PE, and injury to infant during delivery. Patient was also counseled for bilateral salpingectomy including the above risks as well as the risk of regret, failure that resulted in a unplanned or ectopic , injury to ovaries or ureters. The patient stated understanding and desired to proceed. All questions were answered posed by patient. Prior to being taken to the OR, 3 grams of cefazolin IV was administered. The patient was taken to the operating room where regional anesthesia was found to be adequate. She was then prepared and draped in the usual sterile fashion in the dorsal supine position with a leftward tilt displacing the uterus. Pickering was draining to gravity. SCDs were on bilateral lower extremities. A pfannenstiel skin incision was then made with the scalpel and carried through to the underlying layer of fascia. The fascia was incised in the midline and the incision extended laterally with the Aguero scissors. The superior aspect of the facial incision was then grasped with the Pietro clamps, elevated and the underlying rectus muscles dissected off bluntly. Attention was then turned to the inferior aspect of this incision which in a similar fashion was grasped, elevated with the Pietro clamps and the rectus muscle dissected off bluntly. The rectus muscles were in the midline. The peritoneum identified, grasped with the pick-ups and entered sharply with the Metzenbaum scissors. The peritoneal incision was then extended superiorly and inferiorly with good visualization of the bladder. The bladder blade was inserted and the vesicouterine peritoneum was identified, grasped with the pick-ups, and entered sharply with Metzenbaum scissors. Due to scar tissue on the bladder flap, and thin lower uterine segment was unable to create a entire bladder flap at this time. The lower uterine segment was identified and incised in a transverse fashion with the scalpel. The uterine incision was then extended bluntly laterally. Artificial rupture of membranes demonstrated thick meconium fluid. The bladder blade was removed. The fetus was in cephalic presentation. The 's head delivered atraumatically. The anterior shoulders were delivered followed by the posterior shoulders then the remainder of the body. The infant's mouth and nose were bulb suctioned. The umbilical cord was clamped times two and cut after 1 minute of delayed cord clamping. The infant was handed off to the awaiting pediatric staff. A male infant was delivered, weight pending at time of dictation, with APGARS of 8 at 1 minute and 9 at 5 minutes. The was taken to the recovery room for transition. Cord blood was obtained. The placenta was removed with manual removal. Addition al membranes were noted and removed with ring forceps. Noted uterine atony at this time and she was given 1 dose of Methergine 0.2 mg IM by anesthesia.. 30 units of oxytocin were added to IVF and allowed to run freely. The uterus was exteriorized and cleared of all clots and debris. The uterine incision was inspected and found to be without any extensions and was repaired with 0 Vicryl in a running, locked fashion. A second imbricating layer was performed. Attention was then placed to patient's right fallopian tube. Additional timeout procedure was performed, patient gave consent to perform salpingectomy at this time. Right fallopian tube was followed out to the fimbriated end, grasped with a [place] clamp, and LigaSure hand-held device was used to coagulate and cut the fallopian tube from the mesosalpinx along the entire length of the fallopian tube. It was then transected across the cornual region. Good hemostasis was noted. The same procedure was then performed on the patient's left fallopian tube. Both fallopian tubes were sent off to pathology at this time. Good hemostasis was noted. Upon inspection, the repaired hysterotomy was found to be hemostatic. The uterus was firm and returned to the abdomen. The gutters were cleared of all clots and debris. Noted no additional bleeding at the site of the mesosalpinx.Kalli was then placed over the site of the hysterotomy. No additional bleeding was noted. The fascia was reapproximated with 0-PDS loop suture in a running fashion. The subcutaneous layer was then washed with additional liter of warm saline. The subcutaneous layer was closed with 2-0 Vicryl. The skin was closed in a subcuticular fashion with 4-0 vicryl. Rahat dressing was then applied over the incision. The patient tolerated the procedure well. Sponge, lap and needle counts were correct x4. The patient was taken to the recovery room in stable condition. Attestation: My Linseed Oil Press Tender was necessary throughout the procedure(s) for tissue retraction. I understand that section 1842 (b)(7)(D) of the Social Security Act generally prohibits Medicare physician fee schedule payment for the services of [id number] in teaching hospitals when qualified residents are available to furnish such services. I certify that the services for which payment is claimed were medically necessary, and that no qualified resident was available to perform the services. I further understand that these services are subject to post-payment review by the Medicare carrier. I attest to the content of the Intraoperative Record and any orders documented therein. Any exceptions are noted below.
--- NOTE | 2022-12-14 09:31 | Anesthesiology Progress Note ---
Date of Service December 14, 2022 Anesthesia Post Procedure Vital Signs Vital Signs: Temp Pulse Resp BP Pulse Ox 12/14/22 09:28 67 98 12/14/22 09:23 73 97 12/14/22 09:20 64 113/64 12/14/22 09:18 58 L 96 12/14/22 09:13 64 97 12/14/22 09:10 64 109/53 L 12/14/22 09:08 67 97 12/14/22 09:03 66 95 12/14/22 09:00 67 115/59 L 93 12/14/22 05:25 77 129/63 12/14/22 05:26 36.7 C 18 Transfer of Care Handoff Completed per policy Notes Mental Status: alert / awake / arousable and participated in evaluation Nausea / Vomiting: adequately controlled Pain: adequately controlled Airway Patency, RR, SpO2: stable & adequate BP & HR: stable & adequate Hydration State: stable & adequate Neuraxial Anesthesia: was administered and sensory block is resolving Anesthetic Complications: no major complications apparent and Pt Satisfied with anesthetic care
[2022-12-14] MEDS ORDERED: ENOXAPARIN INJ 40 MG/0.4 ML SYR SQ SCH (10:00)
[2022-12-14] MEDS: OXYTOCIN 40 UNITS in LACTATED RINGER'S 1,000 ML IV SCH ×2 (14:43→22:23)
[2022-12-14] MEDS: SIMETHICONE 80 MG CHEW PO SCH ×3 (15:02→20:26)
[2022-12-14] MEDS: DOCUSATE SODIUM 100 MG CAP PO SCH (20:27)
[2022-12-15] MEDS ORDERED: oxyCODONE/ACETAMINOPHEN 5mg/325mg TAB PO PRN (01:36)
[2022-12-15] MEDS ORDERED: diphenhydrAMINE Capsule 25 MG CAP PO PRN (01:36)
[2022-12-15] MEDS ORDERED: PROMETHAZINE HCL 25 MG in SODIUM CHLORIDE 0.9% 50 ML IV PRN (01:36)
[2022-12-15] MEDS ORDERED: diphenhydrAMINE 50 MG/ML VIAL IV PRN (01:36)
[2022-12-15] MEDS ORDERED: ONDANSETRON INJ 2 MG/ML 2 ML VIAL IV PRN (01:36)
[2022-12-15 06:40] LABS: Basophils # (auto) 0.02 K/uL (0-0.2); Basophils % (auto) 0.2 %; Eosinophils # (auto) 0.05 K/uL (0-0.50); Eosinophils % (auto) 0.5 %; Hematocrit (blood only) 36.9 % (37.0-47.0); Immature Granulocytes # (auto) 0.03 K/uL (0.01-0.20); Immature Granulocytes % (auto) 0.3 %; Lymphocytes # (auto) 1.07 K/uL (1.2-3.4); Mean Corpuscular Hemoglobin 27.7 pg (25.0-34.0); Mean Corpuscular Hgb Conc 32.5 g/dL (32.0-36.0); Mean Corpuscular Volume 85.2 fL (80.0-100.0); Mean Platelet Volume 10.6 fL (9.4-12.4); Monocytes # (auto) 0.33 K/uL (0.11-0.59); Monocytes % (auto) 3.4 %; Neutrophils # (auto) 8.22 K/uL (1.40-6.50); Neutrophils % (auto) 84.6 %; Platelet Count 197 K/uL (130-400); RDW Coefficient of Variation 14.8 % (11.5-14.5); RDW Standard Deviation 45.9 fL (36.4-46.3); Red Blood Count 4.33 M/uL (4.20-5.40); White Blood Count 9.72 K/ul (4.8-10.8)
[2022-12-15 06:51] LABS: Creatinine Clr Calc Pharmacy 252.1 ml/min; Est GFR (African American) > 150.0 ml/min; Est GFR (Non-African American) 136.5 ml/min
[2022-12-15] MEDS: FERROUS SULFATE 325 MG TAB PO SCH (08:51)
[2022-12-15] MEDS: DOCUSATE SODIUM 100 MG CAP PO SCH ×2 (08:51→21:08)
[2022-12-15] MEDS: PRENATAL VITAMIN 1 TAB PO SCH (08:51)
[2022-12-15] MEDS: SIMETHICONE 80 MG CHEW PO SCH ×4 (08:51→21:08)
--- NOTE | 2022-12-15 09:43 | Obstetrical Progress Note ---
Date of Service December 15, 2022 Assessment & Plan Admission and Anticipated Discharge Date Admission Date: December 14, 2022 Subjective Patient is seen and examined. She feels well, no complaints. Pain is under control with oral meds. Ambulating without dizziness Voiding without difficulty Tolerating regular diet with out N&V Flatus + BM neg Bleeding is minimal No fever/ chills/ CP/ SOB/ N&V/ Leg pain Bottle feeding without problems Vital Signs Temp Pulse Resp BP Pulse Ox O2 Del Method 12/15/22 08:00 37.1 C 71 18 132/74 97 Room Air 12/15/22 04:30 36.8 C 79 16 113/73 95 Room Air 12/15/22 01:40 18 97 12/15/22 00:54 16 96 12/15/22 00:00 36.8 C 78 16 107/63 98 Room Air 12/15/22 00:00 16 98 12/14/22 23:10 16 95 12/14/22 22:15 16 95 Vital Signs Temp Pulse Pulse Resp BP BP Pulse Ox 12/15/22 08:00 37.1 C 71 18 132/74 97 12/15/22 04:30 36.8 C 79 16 113/73 95 12/15/22 01:40 18 97 12/15/22 00:54 16 96 12/15/22 00:00 36.8 C 78 16 107/63 98 12/15/22 00:00 16 98 12/14/22 23:10 16 95 12/14/22 22:15 16 12/14/22 21:15 16 95 12/14/22 20:15 16 95 12/14/22 19:15 16 95 12/14/22 18:15 16 95 12/14/22 18:50 36.7 C 80 16 108/69 95 12/14/22 17:15 16 95 12/14/22 16:15 16 94 12/14/22 15:15 36.4 C L 81 16 108/69 95 12/14/22 15:15 16 95 12/14/22 15:15 12/14/22 12:15 36.5 C 70 16 128/70 95 12/14/22 14:15 16 93 12/14/22 13:15 16 95 12/14/22 12:15 16 94 12/14/22 11:00 36.5 C 20 12/14/22 11:43 94 H 94 12/14/22 11:38 81 95 12/14/22 11:33 98 H 96 12/14/22 11:28 103 H 95 12/14/22 11:23 110 H 96 12/14/22 11:18 72 95 12/14/22 11:13 97 H 95 12/14/22 11:08 72 94 12/14/22 11:03 79 94 12/14/22 11:00 71 124/70 12/14/22 10:58 73 96 12/14/22 10:53 87 94 12/14/22 10:49 90 100/67 12/14/22 10:48 106 H 98 12/14/22 10:43 67 94 12/14/22 10:39 68 108/66 12/14/22 10:38 69 94 12/14/22 10:33 78 96 12/14/22 10:29 67 117/57 L 12/14/22 10:28 79 95 12/14/22 10:23 73 97 12/14/22 10:19 85 124/69 12/14/22 10:18 65 96 12/14/22 10:13 74 97 12/14/22 10:09 68 126/72 12/14/22 10:08 74 96 12/14/22 10:03 76 97 12/14/22 09:59 77 124/72 12/14/22 09:58 64 99 12/14/22 09:53 67 98 12/14/22 09:49 61 122/66 12/14/22 09:48 67 98 12/14/22 09:43 65 98 Pulse Ox O2 Del Method O2 Del Method 12/15/22 08:00 Room Air 12/15/22 04:30 Room Air 12/15/22 01:40 12/15/22 00:54 12/15/22 00:00 Room Air 12/15/22 00:00 12/14/22 23:10 12/14/22 22:15 12/14/22 21:15 12/14/22 20:15 12/14/22 19:15 12/14/22 18:15 12/14/22 18:50 Room Air 12/14/22 17:15 12/14/22 16:15 12/14/22 15:15 Room Air 12/14/22 15:15 12/14/22 15:15 95 Room Air 12/14/22 12:15 Room Air 12/14/22 14:15 12/14/22 13:15 12/14/22 12:15 12/14/22 11:00 12/14/22 11:43 12/14/22 11:38 12/14/22 11:33 12/14/22 11:28 12/14/22 11:23 12/14/22 11:18 12/14/22 11:13 12/14/22 11:08 12/14/22 11:03 12/14/22 11:00 12/14/22 10:58 12/14/22 10:53 12/14/22 10:49 12/14/22 10:48 12/14/22 10:43 12/14/22 10:39 12/14/22 10:38 12/14/22 10:33 12/14/22 10:29 12/14/22 10:28 12/14/22 10:23 12/14/22 10:19 12/14/22 10:18 12/14/22 10:13 12/14/22 10:09 12/14/22 10:08 12/14/22 10:03 12/14/22 09:59 12/14/22 09:58 12/14/22 09:53 12/14/22 09:49 12/14/22 09:48 12/14/22 09:43 Intake and Output 12/14/22 12/15/22 12/15/22 22:59 06:59 14:59 Intake Total 2051.333 / 2472.166 420.833 / 2472.166 Output Total 400 / 3400 1725 / 3400 Balance 1651.333 / -927.834 -1304.167 / -927.834 Intake: IV 958.333 / 1379.166 420.833 / 1379.166 Oxytocin 40 units In Lactated 958.333 / 1379.166 420.833 / 1379.166 Ringer's 1,000 ml @ 125 mls/hr IV .Q8H2M [facility] Rx#:[id number] Oral 1093 / 1093 Output: Urine 1450 / 1950 Urine Amount (Catheter) 400 / 1450 275 / 1450 Pickering/Indwelling 400 / 1450 275 / 1450 Lab Results 12/14/22 12/14/22 12/14/22 Range/Units 06:39 06:39 Unknown WBC 7.32 (4.8-10.8) K/ul RBC 4.07 L (4.20-5.40) M/uL Hgb 11.4 L (12.0-16.0) g/dl Hct 34.7 L (37.0-47.0) % MCV 85.3 (80.0-100.0) fL MCH 28.0 (25.0-34.0) pg MCHC 32.9 (32.0-36.0) g/dL RDW Std Deviation 45.6 (36.4-46.3) fL RDW Coeff of Hillary 14.8 H (11.5-14.5) % Plt Count 177 (130-400) K/uL MPV 10.3 (9.4-12.4) fL Immature Gran % (Auto) 0.5 % Neut % (Auto) 70.7 % Lymph % (Auto) 22.1 % [place] % (Auto) 5.5 % Eos % (Auto) 0.8 % Baso % (Auto) 0.4 % Neut # (Auto) 5.17 (1.40-6.50) K/uL Lymph # (Auto) 1.62 (1.2-3.4) K/uL [place] # (Auto) 0.40 (0.11-0.59) K/uL Eos # (Auto) 0.06 (0-0.50) K/uL Baso # (Auto) 0.03 (0-0.2) K/uL Immature Gran # (Auto) 0.04 (0.01-0.20) K/uL Creatinine (0.6-1.2) mg/dl Est Cr Clr Drug Dosing ml/min Est GFR ( Amer) ml/min Est GFR (Non-Af Amer) ml/min SARS-CoV-2, RNA, NAAT NEGATIVE (NEGATIVE) Blood Type O Positive Antibody Screen NEGATIVE Crossmatch See Detail 12/15/22 12/15/22 Range/Units 06:11 06:11 WBC 9.72 (4.8-10.8) K/ul RBC 4.33 (4.20-5.40) M/uL Hgb 12.0 (12.0-16.0) g/dl Hct 36.9 L (37.0-47.0) % MCV 85.2 (80.0-100.0) fL MCH 27.7 (25.0-34.0) pg MCHC 32.5 (32.0-36.0) g/dL RDW Std Deviation 45.9 (36.4-46.3) fL RDW Coeff of Hillary 14.8 H (11.5-14.5) % Plt Count 197 (130-400) K/uL MPV 10.6 (9.4-12.4) fL Immature Gran % (Auto) 0.3 % Neut % (Auto) 84.6 % Lymph % (Auto) 11.0 % [place] % (Auto) 3.4 % Eos % (Auto) 0.5 % Baso % (Auto) 0.2 % Neut # (Auto) 8.22 H (1.40-6.50) K/uL Lymph # (Auto) 1.07 L (1.2-3.4) K/uL [place] # (Auto) 0.33 (0.11-0.59) K/uL Eos # (Auto) 0.05 (0-0.50) K/uL Baso # (Auto) 0.02 (0-0.2) K/uL Immature Gran # (Auto) 0.03 (0.01-0.20) K/uL Creatinine 0.43 L (0.6-1.2) mg/dl Est Cr Clr Drug Dosing 252.1 ml/min Est GFR ( Amer) > 150.0 ml/min Est GFR (Non-Af Amer) 136.5 ml/min SARS-CoV-2, RNA, NAAT (NEGATIVE) Blood Type Antibody Screen Crossmatch PE: General: Alert, orientedx3, NAD CVS: S1S2 RRR Lungs; CTAB Abd: soft, NT, ND, BS+, fundus firm, below Umbilicus Incision/ WALTER dressing: Clean, dry, intact Perineum intact, Lochia rubra minimal Ext; NT, no edema AP: 32 yo s/p RC Section+BTL, pod# 1 VSS Afebrile doing well Continue routine postop care Encourage ambulation, PO intake All questions were answered Lovenox for DVT prophylaxis, okay with hematology as long as PT/ INR normal Results & Data ([facility]) Vital Signs (Past 12 Hours) Vital Signs Temp Pulse Resp BP Pulse Ox O2 Del Method 12/15/22 08:00 37.1 C 71 18 132/74 97 Room Air 12/15/22 04:30 36.8 C 79 16 113/73 95 Room Air 12/15/22 01:40 18 97 12/15/22 00:54 16 96 12/15/22 00:00 36.8 C 78 16 107/63 98 Room Air 12/15/22 00:00 16 98 12/14/22 23:10 16 95 12/14/22 22:15 16 95
[2022-12-15 10:09] LABS: INR 0.9 (0.9-1.1); Partial Thromboplastin Time 28.8 Seconds (21.0-31.0); Prothrombin Time 10.1 Seconds (9.0-12.0)
[2022-12-15] MEDS: ENOXAPARIN INJ 40 MG/0.4 ML SYR SQ SCH (11:10)
[2022-12-15] MEDS ORDERED: bisacodyL 5 MG TABEC PO SCH (20:00)
[2022-12-16 06:58] LABS: Hematocrit (blood only) 33.7 % (37.0-47.0)
[2022-12-16] MEDS: FERROUS SULFATE 325 MG TAB PO SCH (08:05)
[2022-12-16] MEDS: SIMETHICONE 80 MG CHEW PO SCH (08:05)
[2022-12-16] MEDS: PRENATAL VITAMIN 1 TAB PO SCH (08:05)
[2022-12-16] MEDS: DOCUSATE SODIUM 100 MG CAP PO SCH (08:05)
[2022-12-16] MEDS ORDERED: bisacodyL 10 MG SUPP PR PRN (08:52)
[2022-12-16] MEDS: ENOXAPARIN INJ 40 MG/0.4 ML SYR SQ SCH (09:31)
--- NOTE | 2022-12-16 10:35 | Obstetrical Progress Note ---
Date of Service December 16, 2022 Subjective Ambulation: ambulating normally Voiding: no voiding problems Diet Tolerance:: regular diet Lochia:: Small Feeding Type:: breast feeding Current Pain Level(1-10): 0 doing well. wants to home this evening Physical Exam Constitutional WD/WN, vitals as above Gastrointestinal (Abdomen) Inspection/Auscultation: abdomen normal to inspection and + abdominal surgical incision Skin no rashes, warm and dry Neurologic patellar DTR's 2+ bilat, sensation intact Psychiatric A+Ox3, euthymic affect Results & Data ([facility]) Vital Signs (Past 12 Hours) Vital Signs Temp Pulse Resp BP BP Pulse Ox O2 Del Method 12/16/22 08:05 36.8 C 96 H 22 134/87 12/15/22 22:50 36.8 C 90 20 118/77 97 Room Air Laboratory Results 12/14/22 12/14/22 12/14/22 06:39 06:39 Unknown WBC 7.32 RBC 4.07 L Hgb 11.4 L Hct 34.7 L MCV 85.3 MCH 28.0 MCHC 32.9 RDW Std Deviation 45.6 RDW Coeff of Hillary 14.8 H Plt Count 177 MPV 10.3 Immature Gran % (Auto) 0.5 Neut % (Auto) 70.7 Lymph % (Auto) 22.1 [place] % (Auto) 5.5 Eos % (Auto) 0.8 Baso % (Auto) 0.4 Neut # (Auto) 5.17 Lymph # (Auto) 1.62 [place] # (Auto) 0.40 Eos # (Auto) 0.06 Baso # (Auto) 0.03 Immature Gran # (Auto) 0.04 PT INR APTT PTT Ratio Creatinine Est Cr Clr Drug Dosing Est GFR ( Amer) Est GFR (Non-Af Amer) SARS-CoV-2, RNA, NAAT NEGATIVE Blood Type O Positive Antibody Screen NEGATIVE Crossmatch See Detail 12/15/22 12/15/22 12/15/22 06:11 06:11 09:25 WBC 9.72 RBC 4.33 Hgb 12.0 Hct 36.9 L MCV 85.2 MCH 27.7 MCHC 32.5 RDW Std Deviation 45.9 RDW Coeff of Hillary 14.8 H Plt Count 197 MPV 10.6 Immature Gran % (Auto) 0.3 Neut % (Auto) 84.6 Lymph % (Auto) 11.0 [place] % (Auto) 3.4 Eos % (Auto) 0.5 Baso % (Auto) 0.2 Neut # (Auto) 8.22 H Lymph # (Auto) 1.07 L [place] # (Auto) 0.33 Eos # (Auto) 0.05 Baso # (Auto) 0.02 Immature Gran # (Auto) 0.03 PT 10.1 INR 0.9 APTT 28.8 PTT Ratio 1.0 Creatinine 0.43 L Est Cr Clr Drug Dosing 252.1 Est GFR ( Amer) > 150.0 Est GFR (Non-Af Amer) 136.5 SARS-CoV-2, RNA, NAAT Blood Type Antibody Screen Crossmatch 12/16/22 06:38 WBC RBC Hgb 11.0 L Hct 33.7 L MCV MCH MCHC RDW Std Deviation RDW Coeff of Hillary Plt Count MPV Immature Gran % (Auto) Neut % (Auto) Lymph % (Auto) [place] % (Auto) Eos % (Auto) Baso % (Auto) Neut # (Auto) Lymph # (Auto) [place] # (Auto) Eos # (Auto) Baso # (Auto) Immature Gran # (Auto) PT INR APTT PTT Ratio Creatinine Est Cr Clr Drug Dosing Est GFR ( Amer) Est GFR (Non-Af Amer) SARS-CoV-2, RNA, NAAT Blood Type Antibody Screen Crossmatch
== END 2022-12-16 18:50 | disposition home or self-care (01) | DRG 785 ==
LOC: 4S1 05:11 → EDSTATUS 07:30 → 4E2 11:40
PROC: M.PPTLD (2022-12-14 07:30)